=== PATIENT | male | born 1975 | race Two or more races ===

== ENCOUNTER 2021-03-08 11:02 | Inpatient (IN) | payer OTHER ==
[~2021-03-08] VITALS: Ht 182.9 cm; Wt 72.0 kg
[2021-03-08] MEDS ORDERED: SODIUM CHLORIDE 0.9% 1,000 ML IV ONE ×2 (11:15)
[2021-03-08] MEDS ORDERED: KETOROLAC TROMETH 30 MG/ML 1ML VIAL IV ONE (11:15)
[2021-03-08] MEDS ORDERED: cefTRIAXone 1GM/50ML D5W 50 ML IV ONE (12:15)
[2021-03-08] MEDS ORDERED: metroNIDAZOLE 500MG/100ML 100 ML IV ONE (12:15)
[2021-03-08] MEDS ORDERED: MORPHINE SULFATE 4 MG/ML SYR/VIAL IV ONE (13:00)
[2021-03-08] MEDS ORDERED: ONDANSETRON HCL 4 MG/2 ML VIAL IV ONE (13:00)
[2021-03-08 13:40] LABS: Basophils # (auto) 0.1 10 ^3/uL (0-0.2); Basophils % (auto) 0.3 % (0.0-2.0); Eosinophils # (auto) 0.1 10 ^3/uL (0-0.8); Eosinophils % (auto) 0.6 % (0.0-7.0); Hematocrit 33.8 % (41.0-53.0); Hemoglobin 11.1 g/dL (13.5-17.5); Lymphocytes # (auto) 1.2 10 ^3/uL (0.4-5.4); Lymphocytes % (auto) 6.9 % (10.0-50.0); Mean Corpuscular Hemoglobin 27.2 pg (28.0-32.0); Mean Corpuscular Hgb Conc. 32.9 g/dL (32.0-36.0); Mean Corpuscular Volume 82.8 fL (80.0-100.0); Monocytes % (auto) 11.7 % (0.0-12.0); Neutrophils % (auto) 80.5 % (37.0-80.0); Red Blood Cells 4.08 10^6/uL (4.5-5.90); Red Cell Distribution Width 13.3 % (11.8-14.3); White Blood Cell 17.4 10^3/uL (4.4-10.8)
[2021-03-08 13:59] LABS: Chloride 102 mmol/L (98-107); Potassium 3.7 mmol/L (3.5-5.1); Sodium 136 mmol/L (136-145)
[2021-03-08 14:08] LABS: Alanine Aminotransferase 47 U/L (16-61); Albumin 2.4 g/dL (3.4-5.0); Alkaline Phosphatase 120 U/L (45-117); Anion Gap 9 (5-15); Aspartate Aminotransferase 19 U/L (15-37); BUN/Creatinine Ratio 16.3; Blood Urea Nitrogen 14 mg/dL (7-18); Calcium 8.7 mg/dL (8.5-10.1); Carbon Dioxide 25 mmol/L (21-32); GFR African American 125 mL/min; GFR Non-African American 103 mL/min; Glucose 85 mg/dL (74-106); Total Protein 7.4 g/dL (6.4-8.2)
[2021-03-08] MEDS ORDERED: MORPHINE SULFATE 4 MG/ML SYR/VIAL IV PRN (15:00)
[2021-03-08] MEDS ORDERED: MORPHINE SULFATE INJECTION 2 MG/ML SYRG IV PRN (15:00)
[2021-03-08] MEDS ORDERED: NITROGLYCERIN 0.4 MG SL TAB SL PRN (15:00)
[2021-03-08] MEDS: D5W/SOD CHL 0.45%/KCL 20MEQ 1,000 ML IV SCH (15:16)
[2021-03-08 16:45] LABS: INR 1.17 (0.9-1.15); Partial Thromboplastin Time 29.7 sec (23.0-31.2)
[2021-03-08] MEDS: ONDANSETRON HCL 4 MG/2 ML VIAL IV PRN (17:40)
[2021-03-08 18:13] LABS: Urine Bacteria NONE SEEN /hpf (None Seen); Urine Blood TRACE /uL (Negative); Urine Hyaline Cast FEW /lpf (0 - 2); Urine Mucus FEW (None Seen); Urine Specific Gravity 1.023 (1.001-1.035); Urine WBC 3 /hpf (0 - 3)
[2021-03-08] MEDS: MORPHINE SULFATE 4 MG/ML SYR/VIAL IV PRN (20:53)
[2021-03-08] MEDS: MEROPENEM 1GM IVPB 100 ML IV SCH (22:21)
[2021-03-09] MEDS: ONDANSETRON HCL 4 MG/2 ML VIAL IV PRN (00:42)
[2021-03-09] MEDS: MORPHINE SULFATE INJECTION 2 MG/ML SYRG IV PRN ×3 (00:42→20:00)
[2021-03-09] MEDS: D5W/SOD CHL 0.45%/KCL 20MEQ 1,000 ML IV SCH ×4 (01:56→17:25)
[2021-03-09] MEDS: MORPHINE SULFATE 4 MG/ML SYR/VIAL IV PRN ×4 (05:41→17:25)
[2021-03-09 06:07] LABS: Basophils # (auto) 0 10 ^3/uL (0-0.2); Basophils % (auto) 0.2 % (0.0-2.0); Eosinophils # (auto) 0.1 10 ^3/uL (0-0.8); Eosinophils % (auto) 0.5 % (0.0-7.0); Hematocrit 32.2 % (41.0-53.0); Hemoglobin 10.9 g/dL (13.5-17.5); Lymphocytes # (auto) 1.3 10 ^3/uL (0.4-5.4); Lymphocytes % (auto) 8.4 % (10.0-50.0); Mean Corpuscular Hemoglobin 27.9 pg (28.0-32.0); Mean Corpuscular Hgb Conc. 33.8 g/dL (32.0-36.0); Mean Corpuscular Volume 82.5 fL (80.0-100.0); Monocytes # (auto) 1.6 10 ^3/uL (0-1.3); Monocytes % (auto) 10.4 % (0.0-12.0); Neutrophils # (auto) 12.1 10 ^3/uL (1.6-8.6); Neutrophils % (auto) 80.5 % (37.0-80.0); Red Cell Distribution Width 13.3 % (11.8-14.3)
[2021-03-09 06:23] LABS: Calcium 8.3 mg/dL (8.5-10.1)
[2021-03-09 06:29] LABS: Albumin 2.6 g/dL (3.4-5.0); BUN/Creatinine Ratio 13.1; Bilirubin, Total 1.2 mg/dL (0.2-1.0); Total Protein 6.9 g/dL (6.4-8.2)
[2021-03-09] MEDS: MEROPENEM 1GM IVPB 100 ML IV SCH ×3 (06:33→22:00)
[2021-03-09] MEDS: ACETAMINOPHEN 325 MG TAB PO PRN ×2 (06:48→16:11)
[2021-03-09] MEDS: PANTOPRAZOLE 40 MG/10 ML VIAL INJ IV SCH (08:45)
[2021-03-09 08:50] VITALS: BP 133/84
[2021-03-09] MEDS: ENOXAPARIN SOD 40 MG/0.4 ML SYRINGE SC SCH (09:43)
[2021-03-09] MEDS ORDERED: levoFLOXacin 500MG 100 ML IV SCH (10:00)
[2021-03-09 12:33] VITALS: BP 134/79
[2021-03-09] MEDS ORDERED: IOHEXOL 300 MG/ML 100ML BOTTLE IJ ONE (14:12)
[2021-03-09] MEDS ORDERED: OMNIPAQUE ORAL SOLN 500ml 12mg/ml PO ONE (14:13)
[2021-03-09 17:13] VITALS: BP 121/68
[2021-03-09 20:00] VITALS: BP 130/77
[2021-03-09 21:38] VITALS: BP 130/77
[2021-03-10] VITALS (7 sets, daily range): BP systolic 106–135; BP diastolic 68–87
[2021-03-10] MEDS: MORPHINE SULFATE 4 MG/ML SYR/VIAL IV PRN ×3 (00:19→10:54)
[2021-03-10] MEDS: D5W/SOD CHL 0.45%/KCL 20MEQ 1,000 ML IV SCH ×3 (00:20→13:14)
[2021-03-10] MEDS: MORPHINE SULFATE INJECTION 2 MG/ML SYRG IV PRN (05:40)
[2021-03-10] MEDS: MEROPENEM 1GM IVPB 100 ML IV SCH ×3 (06:02→23:05)
[2021-03-10 07:24] LABS: Basophils # (auto) 0 10 ^3/uL (0-0.2); Basophils % (auto) 0.2 % (0.0-2.0); Eosinophils # (auto) 0.2 10 ^3/uL (0-0.8); Hematocrit 36.2 % (41.0-53.0); Hemoglobin 11.8 g/dL (13.5-17.5); Lymphocytes # (auto) 1.2 10 ^3/uL (0.4-5.4); Lymphocytes % (auto) 10.4 % (10.0-50.0); Mean Corpuscular Hemoglobin 28.2 pg (28.0-32.0); Mean Corpuscular Hgb Conc. 32.6 g/dL (32.0-36.0); Mean Corpuscular Volume 86.5 fL (80.0-100.0); Monocytes # (auto) 1.3 10 ^3/uL (0-1.3); Monocytes % (auto) 10.7 % (0.0-12.0); Neutrophils # (auto) 9.1 10 ^3/uL (1.6-8.6); Neutrophils % (auto) 76.7 % (37.0-80.0); Red Blood Cells 4.18 10^6/uL (4.5-5.90); Red Cell Distribution Width 13.8 % (11.8-14.3); White Blood Cell 11.8 10^3/uL (4.4-10.8)
[2021-03-10 07:38] LABS: Potassium 3.8 mmol/L (3.5-5.1)
[2021-03-10] MEDS: HYDROmorphone HCL 2 MG/ML VL IV PRN ×4 (07:45→22:00)
[2021-03-10 07:50] LABS: Albumin 2.5 g/dL (3.4-5.0); BUN/Creatinine Ratio 8.1; Bilirubin, Total 0.9 mg/dL (0.2-1.0); Calcium 8.4 mg/dL (8.5-10.1)
[2021-03-10] MEDS: PANTOPRAZOLE 40 MG/10 ML VIAL INJ IV SCH (08:21)
[2021-03-10] MEDS ORDERED: HYDROmorphone HCL 2 MG/ML VL IV PRN ×2 (12:30→12:45)
[2021-03-10] MEDS: ENOXAPARIN SOD 40 MG/0.4 ML SYRINGE SC SCH (12:54)
[2021-03-11] MEDS: HYDROmorphone HCL 2 MG/ML VL IV PRN ×11 (01:14→23:18)
[2021-03-11] MEDS: D5W/SOD CHL 0.45%/KCL 20MEQ 1,000 ML IV SCH ×2 (02:35→18:44)
[2021-03-11 05:00] VITALS: BP 123/74
[2021-03-11 06:05] LABS: Basophils # (auto) 0.1 10 ^3/uL (0-0.2); Basophils % (auto) 0.8 % (0.0-2.0); Eosinophils # (auto) 0.2 10 ^3/uL (0-0.8); Eosinophils % (auto) 3.6 % (0.0-7.0); Hematocrit 35.4 % (41.0-53.0); Hemoglobin 11.8 g/dL (13.5-17.5); Lymphocytes # (auto) 1.2 10 ^3/uL (0.4-5.4); Lymphocytes % (auto) 16.8 % (10.0-50.0); Mean Corpuscular Hemoglobin 27.6 pg (28.0-32.0); Mean Corpuscular Hgb Conc. 33.3 g/dL (32.0-36.0); Monocytes # (auto) 0.9 10 ^3/uL (0-1.3); Monocytes % (auto) 13.1 % (0.0-12.0); Neutrophils # (auto) 4.6 10 ^3/uL (1.6-8.6); Neutrophils % (auto) 65.7 % (37.0-80.0); Nucleated Red Blood Cells % 0.3 %; Red Blood Cells 4.26 10^6/uL (4.5-5.90); Red Cell Distribution Width 13.4 % (11.8-14.3)
[2021-03-11] MEDS: MEROPENEM 1GM IVPB 100 ML IV SCH ×3 (06:24→23:03)
[2021-03-11 06:33] LABS: Albumin 2.6 g/dL (3.4-5.0); Calcium 8.6 mg/dL (8.5-10.1); Potassium 3.9 mmol/L (3.5-5.1)
[2021-03-11 06:37] LABS: Bilirubin, Total 0.4 mg/dL (0.2-1.0); Total Protein 7.2 g/dL (6.4-8.2)
[2021-03-11 08:47] VITALS: BP 130/74
[2021-03-11] MEDS: PANTOPRAZOLE 40 MG/10 ML VIAL INJ IV SCH (08:50)
[2021-03-11] MEDS: ENOXAPARIN SOD 40 MG/0.4 ML SYRINGE SC SCH (08:51)
[2021-03-11 12:32] VITALS: BP 127/79
[2021-03-11 16:25] VITALS: BP 129/87
[2021-03-11] MEDS ORDERED: MILK OF MAGNESIA 30ML SUSP PO PRN (18:00)
[2021-03-11 22:00] VITALS: BP 115/75
[2021-03-11] MEDS: DOCUSATE SOD 100 MG CAP PO SCH (23:03)
[2021-03-11] MEDS: SENNA 8.6 MG TAB PO SCH (23:03)
[2021-03-12] MEDS: HYDROmorphone HCL 2 MG/ML VL IV PRN ×11 (01:12→22:23)
[2021-03-12 05:00] VITALS: BP 109/56
[2021-03-12] MEDS: DOCUSATE SOD 100 MG CAP PO SCH ×3 (05:14→22:00)
[2021-03-12] MEDS: D5W/SOD CHL 0.45%/KCL 20MEQ 1,000 ML IV SCH ×2 (05:16→18:12)
[2021-03-12] MEDS: MEROPENEM 1GM IVPB 100 ML IV SCH ×3 (06:48→22:29)
[2021-03-12 08:48] VITALS: BP 140/83
[2021-03-12] MEDS: MAGNESIUM CITRATE SOLUTION 300 ML BTL PO ONE ×2 (09:24→09:40)
[2021-03-12] MEDS: PANTOPRAZOLE 40 MG/10 ML VIAL INJ IV SCH (09:24)
[2021-03-12] MEDS: ENOXAPARIN SOD 40 MG/0.4 ML SYRINGE SC SCH (09:25)
[2021-03-12 12:41] VITALS: BP 141/71
[2021-03-12 16:37] VITALS: BP 130/75
[2021-03-12 21:42] VITALS: BP 123/72
[2021-03-12] MEDS: SENNA 8.6 MG TAB PO SCH (22:00)
[2021-03-13] MEDS: HYDROmorphone HCL 2 MG/ML VL IV PRN ×10 (00:25→23:41)
[2021-03-13] MEDS: ONDANSETRON HCL 4 MG/2 ML VIAL IV PRN ×2 (04:15→09:07)
[2021-03-13 04:43] VITALS: BP 134/69
[2021-03-13] MEDS: DOCUSATE SOD 100 MG CAP PO SCH ×2 (06:00→14:50)
[2021-03-13] MEDS: MEROPENEM 1GM IVPB 100 ML IV SCH ×3 (06:36→21:31)
[2021-03-13] MEDS: D5W/SOD CHL 0.45%/KCL 20MEQ 1,000 ML IV SCH ×2 (07:55→13:19)
[2021-03-13] MEDS: PANTOPRAZOLE 40 MG/10 ML VIAL INJ IV SCH (08:51)
[2021-03-13] MEDS: ENOXAPARIN SOD 40 MG/0.4 ML SYRINGE SC SCH (08:51)
[2021-03-13 09:00] VITALS: BP 133/67
[2021-03-13] MEDS ORDERED: HYDROcodone-ACET 10/325MG TAB PO PRN ×2 (09:15→12:45)
[2021-03-13] MEDS ORDERED: ACETAMINOPHEN 325 MG TAB PO PRN (09:30)
[2021-03-13 11:23] LABS: Hematocrit 37.6 % (41.0-53.0); Hemoglobin 12.7 g/dL (13.5-17.5); Mean Corpuscular Hemoglobin 27.6 pg (28.0-32.0); Mean Corpuscular Hgb Conc. 33.7 g/dL (32.0-36.0); Mean Corpuscular Volume 81.8 fL (80.0-100.0); Red Cell Distribution Width 13.7 % (11.8-14.3); White Blood Cell 25.2 10^3/uL (4.4-10.8)
[2021-03-13 11:40] LABS: Basophils % (manual) 0 (0.0-2.0); Blast Cells 0; Eosinophils % (manual) 0 (0-7); Metamyelocytes % 0; Myelocytes % 0; Promyelocytes % 0; Reactive Lymphocytes 0
[2021-03-13 11:44] LABS: Albumin 3.3 g/dL (3.4-5.0); Calcium 9.2 mg/dL (8.5-10.1); Magnesium 1.6 mg/dL (1.6-2.6); Potassium 3.8 mmol/L (3.5-5.1)
[2021-03-13] MEDS ORDERED: TPN PER PHARMACY 0 ML IV SCH (11:45)
[2021-03-13 11:47] LABS: BUN/Creatinine Ratio 5.7; Total Protein 8.5 g/dL (6.4-8.2)
[2021-03-13 12:55] LABS: Band Neutrophils % (manual) 23; Lymphocytes % (manual) 4 (10.0-50.0); Monocytes % (manual) 3 (0-12)
[2021-03-13 13:00] VITALS: BP 101/49
[2021-03-13] MEDS ORDERED: SODIUM PHOSP 20MEQ(15MMOL) IN NS 100 ML IV ONE (14:00)
[2021-03-13 17:00] VITALS: BP 94/47
[2021-03-13] MEDS ORDERED: fentaNYL CITRATE 100 MCG/2 ML VL ONE ×2 (18:37→20:07)
[2021-03-13] MEDS: LIDOCAINE 1% HCL (LOCAL ANESTH.) INJ 20ML MDV ONE ×2 (18:38→20:20)
[2021-03-13] MEDS: BUPIVACAINE 0.25% INJ 50ML VIAL ONE ×2 (18:38→20:20)
[2021-03-13] MEDS ORDERED: LIDOCAINE 2% (LOCAL ANESTH.) PF 5ml SDV ONE (18:42)
[2021-03-13] MEDS ORDERED: DexAMETHasone SOD PHOS 10MG/1ML VIAL INJ ONE (18:42)
[2021-03-13] MEDS ORDERED: KETOROLAC TROMETH 60MG/2ML VIAL ONE (18:42)
[2021-03-13] MEDS ORDERED: PROPOFOL 10 MG/ML 20 ML IV ONE (18:42)
[2021-03-13] MEDS ORDERED: ONDANSETRON HCL 4 MG/2 ML VIAL ONE (18:42)
[2021-03-13] MEDS ORDERED: MIDAZOLAM HCL 2MG/2ML 2ml VIAL (1mg/ml) ONE (18:43)
[2021-03-13] MEDS ORDERED: MIDAZOLAM HCL 2MG/2ML 2ml VIAL (1mg/ml) IV ONE (18:45)
[2021-03-13] MEDS ORDERED: NEOSTIGMINE 1 MG/ML INJ (10mg/10ML VIAL) IV ONE (18:45)
[2021-03-13] MEDS ORDERED: ROCURONIUM 10MG/ML 10ML VIAL IV ONE (18:45)
[2021-03-13] MEDS ORDERED: GLYCOPYRROLATE 0.2 MG/ML 1ML VIAL IV ONE (18:45)
[2021-03-13] MEDS ORDERED: LIDOCAINE HCL 2% TOP JELLY 5ML TOP ONE (19:19)
[2021-03-13] MEDS ORDERED: PPN PER PHARMACY IV NR ×10 (20:00)
[2021-03-13 22:25] VITALS: BP 115/70
[2021-03-13] MEDS: InsuLIN REG 1unit/0.01ml Soln (100units/ml) SC SCH (23:51)
[2021-03-13] MEDS: ACCU-CHEK COMFORT CURVE STRIP VI SCH (23:55)
[2021-03-14] MEDS ORDERED: DEXTROSE (50%) 50ML SYRG IV SCH
[2021-03-14] MEDS: HYDROmorphone HCL 2 MG/ML VL IV PRN ×8 (01:26→22:40)
[2021-03-14 05:10] VITALS: BP 128/72
[2021-03-14] MEDS: MEROPENEM 1GM IVPB 100 ML IV SCH ×3 (05:32→20:54)
[2021-03-14] MEDS: InsuLIN REG 1unit/0.01ml Soln (100units/ml) SC SCH ×3 (05:45→18:00)
[2021-03-14] MEDS: ACCU-CHEK COMFORT CURVE STRIP VI SCH ×3 (05:48→18:14)
[2021-03-14 07:45] LABS: Albumin 2.5 g/dL (3.4-5.0); Potassium 4.6 mmol/L (3.5-5.1)
[2021-03-14] MEDS: ENOXAPARIN SOD 40 MG/0.4 ML SYRINGE SC SCH (07:50)
[2021-03-14] MEDS: PANTOPRAZOLE 40 MG/10 ML VIAL INJ IV SCH (07:50)
[2021-03-14] MEDS: D5W/SOD CHL 0.45%/KCL 20MEQ 1,000 ML IV SCH ×2 (07:51→10:39)
[2021-03-14 07:52] LABS: Bilirubin, Total 0.6 mg/dL (0.2-1.0); Calcium 8.6 mg/dL (8.5-10.1); Magnesium 2.3 mg/dL (1.6-2.6); Pre Albumin 9.6 mg/dL (20.0-40.0); Total Protein 7.1 g/dL (6.4-8.2)
[2021-03-14 07:54] VITALS: BP 125/78
[2021-03-14] MEDS ORDERED: CLINIMIX PER PHARMACY 0 ML IV SCH (10:15)
[2021-03-14] MEDS ORDERED: KETOROLAC TROMETH 30 MG/ML 1ML VIAL IV PRN (10:18)
[2021-03-14 12:00] VITALS: BP 126/78
[2021-03-14] MEDS ORDERED: KETOROLAC TROMETH 30 MG/ML 1ML VIAL IV ONE (12:00)
[2021-03-14] MEDS ORDERED: REMDESIVIR PER PHARMACY 0 ML IV SCH (14:15)
[2021-03-14] MEDS ORDERED: REMDESIVIR 200 MG in NS 210ml LOADING DOSE ADULT IV ONE (15:00)
[2021-03-14 17:00] VITALS: BP 137/71
[2021-03-14] MEDS ORDERED: AMINO ACID INFUSION IN D10W 2,000 ML IV NR (20:00)
[2021-03-14 21:34] VITALS: BP 131/67
[2021-03-15] VITALS (7 sets, daily range): BP systolic 108–141; BP diastolic 74–94
[2021-03-15] MEDS: ACCU-CHEK COMFORT CURVE STRIP VI SCH ×4 (00:34→18:11)
[2021-03-15] MEDS: InsuLIN REG 1unit/0.01ml Soln (100units/ml) SC SCH ×4 (00:35→18:00)
[2021-03-15] MEDS: HYDROmorphone HCL 2 MG/ML VL IV PRN ×9 (00:40→22:39)
[2021-03-15] MEDS: MEROPENEM 1GM IVPB 100 ML IV SCH ×3 (05:44→21:54)
[2021-03-15 05:59] LABS: Hematocrit 36.2 % (41.0-53.0); Hemoglobin 11.8 g/dL (13.5-17.5); Mean Corpuscular Hemoglobin 26.6 pg (28.0-32.0); Mean Corpuscular Hgb Conc. 32.5 g/dL (32.0-36.0); Mean Corpuscular Volume 81.9 fL (80.0-100.0); Red Blood Cells 4.42 10^6/uL (4.5-5.90); Red Cell Distribution Width 13.9 % (11.8-14.3); White Blood Cell 29.8 10^3/uL (4.4-10.8)
[2021-03-15 06:00] LABS: Basophils % (manual) 0 (0.0-2.0); Blast Cells 0; Eosinophils % (manual) 0 (0-7); Metamyelocytes % 0; Myelocytes % 0; Promyelocytes % 0; Reactive Lymphocytes 0
[2021-03-15 06:26] LABS: Potassium 4.2 mmol/L (3.5-5.1)
[2021-03-15 06:38] LABS: Albumin 2.5 g/dL (3.4-5.0); Bilirubin, Total 0.6 mg/dL (0.2-1.0); Calcium 8.4 mg/dL (8.5-10.1); Magnesium 2.4 mg/dL (1.6-2.6); Phosphorus 1.5 mg/dL (2.5-4.90); Total Protein 7.3 g/dL (6.4-8.2)
[2021-03-15] MEDS: ONDANSETRON HCL 4 MG/2 ML VIAL IV PRN (06:50)
[2021-03-15 07:06] LABS: Band Neutrophils % (manual) 5; Lymphocytes % (manual) 2 (10.0-50.0); Monocytes % (manual) 7 (0-12)
[2021-03-15] MEDS: ENOXAPARIN SOD 40 MG/0.4 ML SYRINGE SC SCH (08:56)
[2021-03-15] MEDS: PANTOPRAZOLE 40 MG/10 ML VIAL INJ IV SCH (08:56)
[2021-03-15] MEDS: KETOROLAC TROMETH 30 MG/ML 1ML VIAL IV PRN ×2 (08:57→15:55)
[2021-03-15] MEDS: D5W/SOD CHL 0.45%/KCL 20MEQ 1,000 ML IV SCH (10:15)
[2021-03-15] MEDS ORDERED: AMINO ACID INFUSION IN D10W 2,000 ML IV NR ×2 (14:45→20:00)
[2021-03-15] MEDS: REMDESIVIR 100mg 100 MG in SODIUM CHL 0.9% 230 ML IV SCH (15:00)
[2021-03-15 18:46] LABS: Hepatitis A Ab IgM Negative; Hepatitis B Core IgM Negative
[2021-03-15 18:47] LABS: Hepatitis B Surface Antigen Negative (Negative); Hepatitis C Antibody Negative (Negative)
[2021-03-16] MEDS: HYDROmorphone HCL 2 MG/ML VL IV PRN ×10 (00:31→23:03)
[2021-03-16] MEDS: ACCU-CHEK COMFORT CURVE STRIP VI SCH ×5 (00:43→23:12)
[2021-03-16] MEDS: ONDANSETRON HCL 4 MG/2 ML VIAL IV PRN (02:40)
[2021-03-16 05:34] VITALS: BP 137/77
[2021-03-16 05:57] LABS: Basophils # (auto) 0.1 10 ^3/uL (0-0.2); Basophils % (auto) 0.4 % (0.0-2.0); Eosinophils # (auto) 0.1 10 ^3/uL (0-0.8); Eosinophils % (auto) 0.5 % (0.0-7.0); Hematocrit 36.3 % (41.0-53.0); Hemoglobin 11.9 g/dL (13.5-17.5); Lymphocytes # (auto) 1.9 10 ^3/uL (0.4-5.4); Mean Corpuscular Hgb Conc. 32.7 g/dL (32.0-36.0); Mean Corpuscular Volume 82.5 fL (80.0-100.0); Monocytes # (auto) 1.2 10 ^3/uL (0-1.3); Monocytes % (auto) 6.6 % (0.0-12.0); Neutrophils # (auto) 15.4 10 ^3/uL (1.6-8.6); Neutrophils % (auto) 82.5 % (37.0-80.0); Red Cell Distribution Width 13.9 % (11.8-14.3); White Blood Cell 18.6 10^3/uL (4.4-10.8)
[2021-03-16] MEDS: InsuLIN REG 1unit/0.01ml Soln (100units/ml) SC SCH ×5 (06:00→23:12)
[2021-03-16 06:30] LABS: Calcium 8.5 mg/dL (8.5-10.1); Magnesium 2.6 mg/dL (1.6-2.6); Potassium 3.7 mmol/L (3.5-5.1)
[2021-03-16 06:36] LABS: Albumin 2.5 g/dL (3.4-5.0); BUN/Creatinine Ratio 30.6; Bilirubin, Total 0.9 mg/dL (0.2-1.0); Phosphorus 2.2 mg/dL (2.5-4.90); Total Protein 7.4 g/dL (6.4-8.2)
[2021-03-16] MEDS: MEROPENEM 1GM IVPB 100 ML IV SCH ×4 (06:41→21:20)
[2021-03-16 09:00] VITALS: BP 127/90
[2021-03-16] MEDS ORDERED: SODIUM PHOSPH 24MEQ(18MMOL) IN NS 100 ML IV ONE (09:45)
[2021-03-16] MEDS: D5W/SOD CHL 0.45%/KCL 20MEQ 1,000 ML IV SCH (10:15)
[2021-03-16] MEDS: PANTOPRAZOLE 40 MG/10 ML VIAL INJ IV SCH (10:41)
[2021-03-16] MEDS: ENOXAPARIN SOD 40 MG/0.4 ML SYRINGE SC SCH (10:41)
[2021-03-16 13:00] VITALS: BP 130/79
[2021-03-16] MEDS: REMDESIVIR 100mg 100 MG in SODIUM CHL 0.9% 230 ML IV SCH (14:51)
[2021-03-16 17:00] VITALS: BP 126/76
[2021-03-16] MEDS ORDERED: AMINO ACID INFUSION IN D10W 2,000 ML IV NR (20:00)
[2021-03-16 22:00] VITALS: BP 125/81
[2021-03-17] MEDS: HYDROmorphone HCL 2 MG/ML VL IV PRN ×9 (01:34→23:18)
[2021-03-17 04:33] VITALS: BP 135/76
[2021-03-17 05:41] LABS: Basophils # (auto) 0.1 10 ^3/uL (0-0.2); Basophils % (auto) 0.5 % (0.0-2.0); Eosinophils # (auto) 0.1 10 ^3/uL (0-0.8); Eosinophils % (auto) 0.6 % (0.0-7.0); Hematocrit 37.1 % (41.0-53.0); Hemoglobin 12.3 g/dL (13.5-17.5); Lymphocytes # (auto) 1.4 10 ^3/uL (0.4-5.4); Lymphocytes % (auto) 7.8 % (10.0-50.0); Mean Corpuscular Hemoglobin 26.9 pg (28.0-32.0); Mean Corpuscular Hgb Conc. 33.1 g/dL (32.0-36.0); Mean Corpuscular Volume 81.2 fL (80.0-100.0); Monocytes # (auto) 1.2 10 ^3/uL (0-1.3); Monocytes % (auto) 6.7 % (0.0-12.0); Neutrophils # (auto) 15.5 10 ^3/uL (1.6-8.6); Neutrophils % (auto) 84.4 % (37.0-80.0); Red Blood Cells 4.57 10^6/uL (4.5-5.90); Red Cell Distribution Width 13.8 % (11.8-14.3); White Blood Cell 18.4 10^3/uL (4.4-10.8)
[2021-03-17] MEDS: MEROPENEM 1GM IVPB 100 ML IV SCH ×3 (05:55→22:30)
[2021-03-17] MEDS: InsuLIN REG 1unit/0.01ml Soln (100units/ml) SC SCH ×4 (06:00→23:17)
[2021-03-17] MEDS: ACCU-CHEK COMFORT CURVE STRIP VI SCH ×4 (06:04→23:17)
[2021-03-17 06:20] LABS: Potassium 3.6 mmol/L (3.5-5.1)
[2021-03-17 06:30] LABS: Albumin 2.6 g/dL (3.4-5.0); BUN/Creatinine Ratio 32.1; Bilirubin, Total 1.3 mg/dL (0.2-1.0); Calcium 8.4 mg/dL (8.5-10.1); Magnesium 2.5 mg/dL (1.6-2.6); Phosphorus 2.8 mg/dL (2.5-4.90); Total Protein 7.3 g/dL (6.4-8.2)
[2021-03-17 08:30] VITALS: BP 115/76
[2021-03-17] MEDS: ENOXAPARIN SOD 40 MG/0.4 ML SYRINGE SC SCH (10:08)
[2021-03-17] MEDS: PANTOPRAZOLE 40 MG/10 ML VIAL INJ IV SCH ×2 (10:08→22:30)
[2021-03-17] MEDS: D5W/SOD CHL 0.45%/KCL 20MEQ 1,000 ML IV SCH (10:15)
[2021-03-17 12:30] VITALS: BP 124/71
[2021-03-17] MEDS: REMDESIVIR 100mg 100 MG in SODIUM CHL 0.9% 230 ML IV SCH (16:13)
[2021-03-17 17:00] VITALS: BP 118/65
[2021-03-17] MEDS ORDERED: AMINO ACID INFUSION IN D10W 2,000 ML IV NR (20:00)
[2021-03-17 22:00] VITALS: BP 119/77
[2021-03-18] MEDS: HYDROmorphone HCL 2 MG/ML VL IV PRN ×9 (03:49→23:11)
[2021-03-18 05:00] VITALS: BP 124/77
[2021-03-18] MEDS: InsuLIN REG 1unit/0.01ml Soln (100units/ml) SC SCH ×3 (06:00→17:37)
[2021-03-18] MEDS: ACCU-CHEK COMFORT CURVE STRIP VI SCH ×3 (06:03→17:37)
[2021-03-18] MEDS: MEROPENEM 1GM IVPB 100 ML IV SCH ×3 (06:03→21:15)
[2021-03-18 08:55] LABS: Red Cell Distribution Width 14.4 % (11.8-14.3); White Blood Cell 25.6 10^3/uL (4.4-10.8)
[2021-03-18 08:56] LABS: Potassium 3.7 mmol/L (3.5-5.1)
[2021-03-18 08:57] LABS: Hematocrit 36.2 % (41.0-53.0); Mean Corpuscular Hemoglobin 27.2 pg (28.0-32.0); Mean Corpuscular Hgb Conc. 33.2 g/dL (32.0-36.0); Mean Corpuscular Volume 81.9 fL (80.0-100.0); Red Blood Cells 4.43 10^6/uL (4.5-5.90)
[2021-03-18 09:00] VITALS: BP 115/70
[2021-03-18 09:00] LABS: Basophils % (manual) 0 (0.0-2.0); Blast Cells 0; Promyelocytes % 0; Reactive Lymphocytes 0
[2021-03-18 09:03] LABS: Albumin 2.6 g/dL (3.4-5.0); BUN/Creatinine Ratio 31.6; Bilirubin, Total 1.5 mg/dL (0.2-1.0); Calcium 8.6 mg/dL (8.5-10.1); Magnesium 2.4 mg/dL (1.6-2.6); Phosphorus 2.6 mg/dL (2.5-4.90); Total Protein 7.7 g/dL (6.4-8.2)
[2021-03-18 09:28] LABS: Band Neutrophils % (manual) 7; Eosinophils % (manual) 1 (0-7); Lymphocytes % (manual) 6 (10.0-50.0); Metamyelocytes % 1; Monocytes % (manual) 6 (0-12); Myelocytes % 1
[2021-03-18] MEDS: ENOXAPARIN SOD 40 MG/0.4 ML SYRINGE SC SCH (10:16)
[2021-03-18] MEDS: PANTOPRAZOLE 40 MG/10 ML VIAL INJ IV SCH ×2 (10:16→21:15)
[2021-03-18] MEDS: D5W/SOD CHL 0.45%/KCL 20MEQ 1,000 ML IV SCH (10:18)
[2021-03-18 13:00] VITALS: BP 114/76
[2021-03-18] MEDS: REMDESIVIR 100mg 100 MG in SODIUM CHL 0.9% 230 ML IV SCH (15:45)
[2021-03-18 17:00] VITALS: BP 122/69
[2021-03-18] MEDS ORDERED: AMINO ACID INFUSION IN D10W 2,000 ML IV NR (20:00)
[2021-03-18 22:00] VITALS: BP 107/77
[2021-03-19] MEDS: ACCU-CHEK COMFORT CURVE STRIP VI SCH ×4 (00:30→17:57)
[2021-03-19] MEDS: HYDROmorphone HCL 2 MG/ML VL IV PRN ×7 (02:03→23:31)
[2021-03-19 05:21] VITALS: BP 113/66
[2021-03-19] MEDS: InsuLIN REG 1unit/0.01ml Soln (100units/ml) SC SCH ×4 (06:00→17:59)
[2021-03-19] MEDS: MEROPENEM 1GM IVPB 100 ML IV SCH ×3 (06:18→20:58)
[2021-03-19 07:03] LABS: Albumin 2.5 g/dL (3.4-5.0); Calcium 8.3 mg/dL (8.5-10.1); Magnesium 2.4 mg/dL (1.6-2.6); Potassium 3.6 mmol/L (3.5-5.1)
[2021-03-19 07:07] LABS: BUN/Creatinine Ratio 31.6; Phosphorus 2.9 mg/dL (2.5-4.90); Total Protein 7.2 g/dL (6.4-8.2)
[2021-03-19 08:43] VITALS: BP 122/73
[2021-03-19] MEDS: PANTOPRAZOLE 40 MG/10 ML VIAL INJ IV SCH ×2 (09:15→20:58)
[2021-03-19] MEDS: ENOXAPARIN SOD 40 MG/0.4 ML SYRINGE SC SCH (09:15)
[2021-03-19 12:58] VITALS: BP 103/68
[2021-03-19 16:48] VITALS: BP 123/78
[2021-03-19] MEDS ORDERED: OXYCODONE W/ ACETAMINOPHEN 5/325MG TABLET PO PRN (19:15)
[2021-03-19] MEDS ORDERED: AMINO ACID INFUSION IN D10W 2,000 ML IV NR (20:00)
[2021-03-19] MEDS: OXYCODONE W/ ACETAMINOPHEN 5/325MG TABLET PO PRN (20:57)
[2021-03-19 22:00] VITALS: BP 116/79
[2021-03-20] MEDS: OXYCODONE W/ ACETAMINOPHEN 5/325MG TABLET PO PRN ×5 (01:38→21:01)
[2021-03-20] MEDS: HYDROmorphone HCL 2 MG/ML VL IV PRN ×7 (02:36→22:00)
[2021-03-20 05:00] VITALS: BP 119/75
[2021-03-20] MEDS: MEROPENEM 1GM IVPB 100 ML IV SCH ×3 (06:28→21:56)
[2021-03-20] MEDS: ENOXAPARIN SOD 40 MG/0.4 ML SYRINGE SC SCH (07:58)
[2021-03-20] MEDS: PANTOPRAZOLE 40 MG/10 ML VIAL INJ IV SCH ×2 (07:58→21:56)
[2021-03-20 09:00] VITALS: BP 118/87
[2021-03-20 13:00] VITALS: BP 110/73
[2021-03-20 17:00] VITALS: BP 124/67
[2021-03-20 22:00] VITALS: BP 117/76
[2021-03-21] MEDS: HYDROmorphone HCL 2 MG/ML VL IV PRN ×8 (00:29→18:39)
[2021-03-21 05:00] VITALS: BP 109/79
[2021-03-21] MEDS: MEROPENEM 1GM IVPB 100 ML IV SCH ×2 (05:30→14:50)
[2021-03-21 08:00] VITALS: BP 111/82
[2021-03-21] MEDS: PANTOPRAZOLE 40 MG/10 ML VIAL INJ IV SCH ×2 (08:01→21:05)
[2021-03-21] MEDS: ENOXAPARIN SOD 40 MG/0.4 ML SYRINGE SC SCH (08:02)
[2021-03-21 09:00] VITALS: BP 111/82
[2021-03-21 13:00] VITALS: BP 123/81
[2021-03-21] MEDS: metroNIDAZOLE 500MG/100ML 100 ML IV SCH ×2 (13:54→21:05)
[2021-03-21] MEDS ORDERED: VANCOMYCIN HCL 125MG/5ML ORAL SOL PO SCH (14:00)
[2021-03-21] MEDS: ONDANSETRON HCL 4 MG/2 ML VIAL IV PRN ×3 (14:06→23:22)
[2021-03-21 14:29] LABS: Basophils # (auto) 0.1 10 ^3/uL (0-0.2); Eosinophils # (auto) 0 10 ^3/uL (0-0.8); Monocytes # (auto) 0.9 10 ^3/uL (0-1.3)
[2021-03-21 14:30] LABS: Basophils % (auto) 0.4 % (0.0-2.0); Eosinophils % (auto) 0.2 % (0.0-7.0); Hemoglobin 13.8 g/dL (13.5-17.5); Lymphocytes # (auto) 1.5 10 ^3/uL (0.4-5.4); Mean Corpuscular Hemoglobin 27.1 pg (28.0-32.0); Mean Corpuscular Hgb Conc. 33.6 g/dL (32.0-36.0); Mean Corpuscular Volume 80.7 fL (80.0-100.0); Monocytes % (auto) 4.5 % (0.0-12.0); Neutrophils # (auto) 18.4 10 ^3/uL (1.6-8.6); Neutrophils % (auto) 87.9 % (37.0-80.0); Red Blood Cells 5.08 10^6/uL (4.5-5.90); Red Cell Distribution Width 14.6 % (11.8-14.3); White Blood Cell 20.9 10^3/uL (4.4-10.8)
[2021-03-21 14:38] LABS: Albumin 2.8 g/dL (3.4-5.0)
[2021-03-21] MEDS: VANCOMYCIN HCL 125MG/5ML ORAL SOL PO SCH ×3 (14:40→21:07)
[2021-03-21 14:41] LABS: BUN/Creatinine Ratio 18.9; Total Protein 8.1 g/dL (6.4-8.2)
[2021-03-21] MEDS: FLORASTOR (S. BOULARDII) 250 MG CAP PO SCH ×2 (15:00→23:22)
[2021-03-21 17:00] VITALS: BP 123/75
[2021-03-21] MEDS ORDERED: HYDROmorphone HCL 2 MG TAB PO PRN (18:30)
[2021-03-21] MEDS: HYDROmorphone HCL 2 MG TAB PO PRN (21:03)
[2021-03-21 22:00] VITALS: BP 113/72
[2021-03-21] MEDS: D5W/SOD CHL 0.45%/KCL 20MEQ 1,000 ML IV SCH (23:22)
[2021-03-22] MEDS: HYDROmorphone HCL 2 MG TAB PO PRN ×2 (01:01→05:21)
[2021-03-22 05:00] VITALS: BP 119/73
[2021-03-22] MEDS: ONDANSETRON HCL 4 MG/2 ML VIAL IV PRN ×3 (05:21→14:34)
[2021-03-22] MEDS: VANCOMYCIN HCL 125MG/5ML ORAL SOL PO SCH ×4 (05:21→22:42)
[2021-03-22] MEDS: metroNIDAZOLE 500MG/100ML 100 ML IV SCH ×3 (05:21→22:41)
[2021-03-22] MEDS: FLORASTOR (S. BOULARDII) 250 MG CAP PO SCH ×3 (07:00→22:42)
[2021-03-22 08:00] VITALS: BP 120/75
[2021-03-22] MEDS: D5W/SOD CHL 0.45%/KCL 20MEQ 1,000 ML IV SCH ×2 (08:11→21:25)
[2021-03-22 08:48] VITALS: BP 120/75
[2021-03-22] MEDS: ENOXAPARIN SOD 40 MG/0.4 ML SYRINGE SC SCH (09:35)
[2021-03-22] MEDS: PANTOPRAZOLE 40 MG/10 ML VIAL INJ IV SCH ×2 (09:35→22:41)
[2021-03-22] MEDS: HYDROmorphone HCL 2 MG/ML VL IV PRN ×6 (09:53→22:43)
[2021-03-22 13:00] VITALS: BP 114/78
[2021-03-22 16:43] VITALS: BP 116/88
[2021-03-22] MEDS: chlorproMAZINE INECTION 25 MG in SODIUM CHL 0.9% 50 ML IV PRN (18:46)
[2021-03-22 22:00] VITALS: BP 110/76
[2021-03-23] MEDS: HYDROmorphone HCL 2 MG/ML VL IV PRN ×4 (00:51→22:30)
[2021-03-23] MEDS: HYDROmorphone HCL 2 MG TAB PO PRN ×4 (00:56→15:22)
[2021-03-23] MEDS: chlorproMAZINE INECTION 25 MG in SODIUM CHL 0.9% 50 ML IV PRN ×3 (02:30→21:27)
[2021-03-23 05:00] VITALS: BP 119/78
[2021-03-23] MEDS: metroNIDAZOLE 500MG/100ML 100 ML IV SCH ×3 (06:23→22:30)
[2021-03-23] MEDS: FLORASTOR (S. BOULARDII) 250 MG CAP PO SCH ×3 (06:23→23:00)
[2021-03-23] MEDS: VANCOMYCIN HCL 125MG/5ML ORAL SOL PO SCH ×4 (06:23→21:55)
[2021-03-23 08:43] VITALS: BP 115/82
[2021-03-23] MEDS: ENOXAPARIN SOD 40 MG/0.4 ML SYRINGE SC SCH (09:20)
[2021-03-23] MEDS: PANTOPRAZOLE 40 MG/10 ML VIAL INJ IV SCH ×2 (09:20→22:30)
[2021-03-23 09:36] LABS: Basophils # (auto) 0.1 10 ^3/uL (0-0.2); Basophils % (auto) 0.6 % (0.0-2.0); Eosinophils # (auto) 0.1 10 ^3/uL (0-0.8); Eosinophils % (auto) 0.4 % (0.0-7.0); Hematocrit 36.8 % (41.0-53.0); Lymphocytes # (auto) 1.9 10 ^3/uL (0.4-5.4); Lymphocytes % (auto) 9.3 % (10.0-50.0); Mean Corpuscular Hemoglobin 26.5 pg (28.0-32.0); Mean Corpuscular Hgb Conc. 32.6 g/dL (32.0-36.0); Mean Corpuscular Volume 81.3 fL (80.0-100.0); Monocytes # (auto) 1.4 10 ^3/uL (0-1.3); Monocytes % (auto) 6.7 % (0.0-12.0); Neutrophils # (auto) 16.9 10 ^3/uL (1.6-8.6); Nucleated Red Blood Cells % 0.1 %; Red Blood Cells 4.53 10^6/uL (4.5-5.90); Red Cell Distribution Width 15.1 % (11.8-14.3); White Blood Cell 20.3 10^3/uL (4.4-10.8)
[2021-03-23 09:50] LABS: Albumin 2.7 g/dL (3.4-5.0); Potassium 4.4 mmol/L (3.5-5.1)
[2021-03-23 09:53] LABS: BUN/Creatinine Ratio 22.2; Bilirubin, Total 0.6 mg/dL (0.2-1.0); Total Protein 7.1 g/dL (6.4-8.2)
[2021-03-23] MEDS: D5W/SOD CHL 0.45%/KCL 20MEQ 1,000 ML IV SCH (11:20)
[2021-03-23 13:00] VITALS: BP 132/85
[2021-03-23 17:00] VITALS: BP 123/81
[2021-03-23 22:00] VITALS: BP 129/79
[2021-03-24] MEDS: D5W/SOD CHL 0.45%/KCL 20MEQ 1,000 ML IV SCH ×2 (00:05→13:32)
[2021-03-24] MEDS: HYDROmorphone HCL 2 MG/ML VL IV PRN ×4 (00:49→08:30)
[2021-03-24 05:00] VITALS: BP 123/75
[2021-03-24] MEDS: FLORASTOR (S. BOULARDII) 250 MG CAP PO SCH (05:23)
[2021-03-24] MEDS: metroNIDAZOLE 500MG/100ML 100 ML IV SCH ×3 (05:39→22:13)
[2021-03-24] MEDS: VANCOMYCIN HCL 125MG/5ML ORAL SOL PO SCH (05:39)
[2021-03-24] MEDS: ENOXAPARIN SOD 40 MG/0.4 ML SYRINGE SC SCH (08:29)
[2021-03-24] MEDS: PANTOPRAZOLE 40 MG/10 ML VIAL INJ IV SCH ×2 (08:29→22:14)
[2021-03-24 09:00] VITALS: BP 121/79
[2021-03-24 12:54] VITALS: BP 115/84
[2021-03-24 16:47] VITALS: BP 128/81
[2021-03-24] MEDS: ONDANSETRON HCL 4 MG/2 ML VIAL IV PRN (18:06)
[2021-03-24 20:00] VITALS: BP 121/68
[2021-03-24 21:41] VITALS: BP 121/68
[2021-03-25] MEDS: D5W/SOD CHL 0.45%/KCL 20MEQ 1,000 ML IV SCH ×2 (02:04→18:31)
[2021-03-25 05:11] VITALS: BP 132/88
[2021-03-25] MEDS: metroNIDAZOLE 500MG/100ML 100 ML IV SCH ×3 (05:36→21:43)
[2021-03-25 07:00] LABS: Basophils # (auto) 0.1 10 ^3/uL (0-0.2); Eosinophils # (auto) 0.1 10 ^3/uL (0-0.8)
[2021-03-25 07:03] LABS: Basophils % (auto) 0.9 % (0.0-2.0); Eosinophils % (auto) 1.1 % (0.0-7.0); Hematocrit 36.3 % (41.0-53.0); Lymphocytes % (auto) 19.1 % (10.0-50.0); Mean Corpuscular Hemoglobin 26.8 pg (28.0-32.0); Mean Corpuscular Volume 81.4 fL (80.0-100.0); Monocytes % (auto) 9.6 % (0.0-12.0); Neutrophils # (auto) 7.2 10 ^3/uL (1.6-8.6); Neutrophils % (auto) 69.3 % (37.0-80.0); Nucleated Red Blood Cells % 0.1 %; Red Blood Cells 4.46 10^6/uL (4.5-5.90); White Blood Cell 10.5 10^3/uL (4.4-10.8)
[2021-03-25 07:20] LABS: Albumin 3.2 g/dL (3.4-5.0); BUN/Creatinine Ratio 21.1; Calcium 9.3 mg/dL (8.5-10.1)
[2021-03-25 07:23] LABS: Bilirubin, Total 0.9 mg/dL (0.2-1.0); Total Protein 8.2 g/dL (6.4-8.2)
[2021-03-25] MEDS ORDERED: BENZOCAINE (DENTAL) 20 % SPRAY 60ML MT ONE (07:45)
[2021-03-25 08:34] VITALS: BP 129/78
[2021-03-25] MEDS: PANTOPRAZOLE 40 MG/10 ML VIAL INJ IV SCH ×2 (09:50→21:43)
[2021-03-25] MEDS: ENOXAPARIN SOD 40 MG/0.4 ML SYRINGE SC SCH (09:50)
[2021-03-25 12:49] VITALS: BP 121/80
[2021-03-25 16:49] VITALS: BP 130/81
[2021-03-25 20:00] VITALS: BP 128/83
[2021-03-25 22:00] VITALS: BP 128/83
[2021-03-25] MEDS: ONDANSETRON HCL 4 MG/2 ML VIAL IV PRN (23:48)
[2021-03-25] MEDS: HYDROmorphone HCL 2 MG/ML VL IV PRN (23:48)
[2021-03-26 05:12] VITALS: BP 124/80
[2021-03-26] MEDS: metroNIDAZOLE 500MG/100ML 100 ML IV SCH ×3 (05:21→20:56)
[2021-03-26] MEDS: D5W/SOD CHL 0.45%/KCL 20MEQ 1,000 ML IV SCH ×2 (05:21→18:35)
[2021-03-26] MEDS: ONDANSETRON HCL 4 MG/2 ML VIAL IV PRN ×2 (08:08→17:57)
[2021-03-26] MEDS: HYDROmorphone HCL 2 MG/ML VL IV PRN ×4 (08:08→23:55)
[2021-03-26 08:58] VITALS: BP 121/76
[2021-03-26] MEDS: ENOXAPARIN SOD 40 MG/0.4 ML SYRINGE SC SCH (09:59)
[2021-03-26] MEDS: PANTOPRAZOLE 40 MG/10 ML VIAL INJ IV SCH ×2 (09:59→22:44)
[2021-03-26] MEDS ORDERED: GASTROGRAFIN 120 ML SOL ONE (12:30)
[2021-03-26 13:00] VITALS: BP 119/77
[2021-03-26 17:00] VITALS: BP 115/96
[2021-03-26 20:00] VITALS: BP 112/83
[2021-03-26 22:00] VITALS: BP 112/83
[2021-03-27] VITALS (7 sets, daily range): BP systolic 108–127; BP diastolic 68–83
[2021-03-27] MEDS: metroNIDAZOLE 500MG/100ML 100 ML IV SCH ×3 (05:33→22:07)
[2021-03-27] MEDS: HYDROmorphone HCL 2 MG/ML VL IV PRN ×6 (05:45→22:07)
[2021-03-27] MEDS: ENOXAPARIN SOD 40 MG/0.4 ML SYRINGE SC SCH (09:48)
[2021-03-27] MEDS: PANTOPRAZOLE 40 MG/10 ML VIAL INJ IV SCH ×2 (09:48→22:07)
[2021-03-27] MEDS: D5W/SOD CHL 0.45%/KCL 20MEQ 1,000 ML IV SCH ×2 (09:48→22:07)
[2021-03-27] MEDS: ONDANSETRON HCL 4 MG/2 ML VIAL IV PRN (18:18)
[2021-03-28] VITALS (7 sets, daily range): BP systolic 112–118; BP diastolic 70–81
[2021-03-28] MEDS: HYDROmorphone HCL 2 MG/ML VL IV PRN ×9 (02:14→22:16)
[2021-03-28] MEDS: metroNIDAZOLE 500MG/100ML 100 ML IV SCH ×3 (05:42→21:54)
[2021-03-28] MEDS: PANTOPRAZOLE 40 MG/10 ML VIAL INJ IV SCH ×2 (09:36→21:54)
[2021-03-28] MEDS: ENOXAPARIN SOD 40 MG/0.4 ML SYRINGE SC SCH (09:37)
[2021-03-28] MEDS ORDERED: OMNIPAQUE ORAL SOLN 500ml 12mg/ml PO ONE (11:52)
[2021-03-28] MEDS ORDERED: IOHEXOL 300 MG/ML 100ML BOTTLE IJ ONE (11:52)
[2021-03-28] MEDS: D5W/SOD CHL 0.45%/KCL 20MEQ 1,000 ML IV SCH (12:38)
[2021-03-29] MEDS: HYDROmorphone HCL 2 MG/ML VL IV PRN ×8 (01:04→23:43)
[2021-03-29] MEDS: D5W/SOD CHL 0.45%/KCL 20MEQ 1,000 ML IV SCH ×3 (01:05→21:47)
[2021-03-29 05:00] VITALS: BP 122/84
[2021-03-29] MEDS: metroNIDAZOLE 500MG/100ML 100 ML IV SCH ×3 (05:16→22:18)
[2021-03-29 05:43] LABS: Basophils # (auto) 0 10 ^3/uL (0-0.2); Basophils % (auto) 0.3 % (0.0-2.0); Eosinophils # (auto) 0.1 10 ^3/uL (0-0.8); Lymphocytes # (auto) 1.3 10 ^3/uL (0.4-5.4); Monocytes % (auto) 11.6 % (0.0-12.0)
[2021-03-29 05:45] LABS: Hematocrit 37.7 % (41.0-53.0); Hemoglobin 12.7 g/dL (13.5-17.5); Lymphocytes % (auto) 11.3 % (10.0-50.0); Mean Corpuscular Hemoglobin 27.5 pg (28.0-32.0); Mean Corpuscular Hgb Conc. 33.8 g/dL (32.0-36.0); Mean Corpuscular Volume 81.5 fL (80.0-100.0); Monocytes # (auto) 1.3 10 ^3/uL (0-1.3); Neutrophils # (auto) 8.6 10 ^3/uL (1.6-8.6); Neutrophils % (auto) 75.8 % (37.0-80.0); Red Blood Cells 4.62 10^6/uL (4.5-5.90); Red Cell Distribution Width 15.4 % (11.8-14.3); White Blood Cell 11.4 10^3/uL (4.4-10.8)
[2021-03-29 06:19] LABS: Potassium 4.4 mmol/L (3.5-5.1)
[2021-03-29 06:27] LABS: Albumin 3.5 g/dL (3.4-5.0); BUN/Creatinine Ratio 29.7; Bilirubin, Total 1.6 mg/dL (0.2-1.0); Calcium 9.5 mg/dL (8.5-10.1); Total Protein 8.6 g/dL (6.4-8.2)
[2021-03-29 08:00] VITALS: BP 113/84
[2021-03-29 08:23] LABS: INR 1.31 (0.9-1.15)
[2021-03-29] MEDS: ENOXAPARIN SOD 40 MG/0.4 ML SYRINGE SC SCH (08:56)
[2021-03-29] MEDS: PANTOPRAZOLE 40 MG/10 ML VIAL INJ IV SCH ×2 (08:57→22:19)
[2021-03-29 09:00] VITALS: BP 113/84
[2021-03-29 13:00] VITALS: BP 112/87
[2021-03-29] MEDS ORDERED: LIDOCAINE 1% HCL (LOCAL ANESTH.) INJ 20ML MDV ONE (14:14)
[2021-03-29] MEDS ORDERED: BUPIVACAINE HCL 50 ML ONE (14:14)
[2021-03-29] MEDS ORDERED: FAMOTIDINE (10MG/ML) 2ML VL IV ONE (15:28)
[2021-03-29] MEDS ORDERED: SUCCINYLCHOLINE CHLORIDE 20 MG/ML 10ML VIAL IV ONE (15:28)
[2021-03-29] MEDS ORDERED: METOCLOPRAMIDE HCL 5MG/ml INJ 2ml VIAL IV ONE (15:30)
[2021-03-29] MEDS ORDERED: DexAMETHasone SOD PHOS 10MG/1ML VIAL INJ IV ONE (15:30)
[2021-03-29] MEDS ORDERED: HYDROmorphone HCL 2 MG/ML VL ONE (15:31)
[2021-03-29] MEDS ORDERED: LIDOCAINE 2% (LOCAL ANESTH.) PF 5ml SDV ONE (15:32)
[2021-03-29] MEDS ORDERED: ROCURONIUM 10MG/ML 10ML VIAL IV ONE (15:32)
[2021-03-29] MEDS ORDERED: fentaNYL CITRATE 100 MCG/2 ML VL ONE ×2 (15:32→17:31)
[2021-03-29] MEDS ORDERED: PROPOFOL 10 MG/ML 20 ML IV ONE (15:32)
[2021-03-29] MEDS ORDERED: GLYCOPYRROLATE 0.2 MG/ML 1ML VIAL ONE ×2 (15:32→17:43)
[2021-03-29] MEDS ORDERED: MIDAZOLAM HCL 2MG/2ML 2ml VIAL (1mg/ml) ONE (15:32)
[2021-03-29] MEDS ORDERED: ONDANSETRON HCL 4 MG/2 ML VIAL ONE (15:32)
[2021-03-29] MEDS ORDERED: ePHEDrine SULFATE 50 MG/ML AMP ONE (15:38)
[2021-03-29] MEDS ORDERED: NEOSTIGMINE 1 MG/ML INJ (10mg/10ML VIAL) ONE (17:43)
[2021-03-29] MEDS ORDERED: MEPERIDINE HCL (25 MG/ML) 1ML VIAL ONE (18:19)
[2021-03-29] MEDS ORDERED: HYDROmorphone HCL 2 MG/ML VL IV PRN (18:45)
[2021-03-29] MEDS ORDERED: ONDANSETRON HCL 4 MG/2 ML VIAL IV PRN (18:45)
[2021-03-29 20:00] VITALS: BP 103/78
[2021-03-30] MEDS: HYDROmorphone HCL 2 MG/ML VL IV PRN ×11 (01:36→23:01)
[2021-03-30] MEDS: D5W/SOD CHL 0.45%/KCL 20MEQ 1,000 ML IV SCH ×3 (04:12→17:58)
[2021-03-30 05:00] VITALS: BP 115/82
[2021-03-30] MEDS: metroNIDAZOLE 500MG/100ML 100 ML IV SCH ×3 (06:02→21:44)
[2021-03-30] MEDS: ONDANSETRON HCL 4 MG/2 ML VIAL IV PRN (06:15)
[2021-03-30] MEDS: ENOXAPARIN SOD 40 MG/0.4 ML SYRINGE SC SCH (08:37)
[2021-03-30] MEDS: PANTOPRAZOLE 40 MG/10 ML VIAL INJ IV SCH ×2 (08:37→21:45)
[2021-03-30 09:00] VITALS: BP 118/76
[2021-03-30 13:00] VITALS: BP 130/86
[2021-03-30 17:00] VITALS: BP 140/82
[2021-03-30] MEDS ORDERED: TPN PER PHARMACY 0 ML IV SCH (19:00)
[2021-03-30] MEDS: AMINO ACID INFUSION IN D10W 1,000 ML IV NR ×2 (20:10→20:12)
[2021-03-30 22:00] VITALS: BP 127/90
[2021-03-31] MEDS ORDERED: DEXTROSE (50%) 50ML SYRG IV SCH
[2021-03-31] MEDS: ACCU-CHEK COMFORT CURVE STRIP VI SCH ×5 (00:07→17:37)
[2021-03-31] MEDS: HYDROmorphone HCL 2 MG/ML VL IV PRN ×9 (01:42→21:30)
[2021-03-31] MEDS: D5W/SOD CHL 0.45%/KCL 20MEQ 1,000 ML IV SCH ×3 (02:14→16:28)
[2021-03-31] MEDS: ONDANSETRON HCL 4 MG/2 ML VIAL IV PRN ×2 (04:06→14:16)
[2021-03-31 05:00] VITALS: BP 124/80
[2021-03-31] MEDS: metroNIDAZOLE 500MG/100ML 100 ML IV SCH ×3 (05:26→21:10)
[2021-03-31] MEDS: InsuLIN REG 1unit/0.01ml Soln (100units/ml) SC SCH ×5 (06:00→17:37)
[2021-03-31 08:27] VITALS: BP 121/76
[2021-03-31 08:31] LABS: Basophils # (auto) 0 10 ^3/uL (0-0.2); Eosinophils # (auto) 0.1 10 ^3/uL (0-0.8); Eosinophils % (auto) 0.6 % (0.0-7.0); Hemoglobin 9.6 g/dL (13.5-17.5); Lymphocytes # (auto) 0.8 10 ^3/uL (0.4-5.4); Monocytes # (auto) 1.3 10 ^3/uL (0-1.3); White Blood Cell 11.3 10^3/uL (4.4-10.8)
[2021-03-31 08:33] LABS: Basophils % (auto) 0.2 % (0.0-2.0); Hematocrit 29.2 % (41.0-53.0); Lymphocytes % (auto) 7.1 % (10.0-50.0); Mean Corpuscular Hemoglobin 27.2 pg (28.0-32.0); Mean Corpuscular Volume 82.4 fL (80.0-100.0); Monocytes % (auto) 11.8 % (0.0-12.0); Neutrophils % (auto) 80.3 % (37.0-80.0); Red Blood Cells 3.55 10^6/uL (4.5-5.90)
[2021-03-31 08:45] LABS: Albumin 2.4 g/dL (3.4-5.0); Calcium 8.4 mg/dL (8.5-10.1); Magnesium 2.5 mg/dL (1.6-2.6)
[2021-03-31 08:49] LABS: BUN/Creatinine Ratio 21.3; Bilirubin, Total 0.9 mg/dL (0.2-1.0); Phosphorus 1.6 mg/dL (2.5-4.90); Total Protein 6.4 g/dL (6.4-8.2)
[2021-03-31] MEDS: ENOXAPARIN SOD 40 MG/0.4 ML SYRINGE SC SCH (09:27)
[2021-03-31] MEDS: PANTOPRAZOLE 40 MG/10 ML VIAL INJ IV SCH ×2 (09:27→21:11)
[2021-03-31 13:00] VITALS: BP 125/74
[2021-03-31] MEDS ORDERED: D5W/SOD CHL 0.45%/KCL 20MEQ 1,000 ML IV SCH ×2 (13:15→14:00)
[2021-03-31] MEDS ORDERED: POTASSIUM PHOSPHATE IV ONE (14:15)
[2021-03-31] MEDS ORDERED: D5W 5% IV ONE (14:15)
[2021-03-31] MEDS ORDERED: SODIUM PHOSPHATES 20 MEQ in SODIUM CHL 0.9% 100 ML IV ONE (15:15)
[2021-03-31 17:16] VITALS: BP 119/76
[2021-03-31] MEDS ORDERED: SODIUM CHLORIDE 0.9% 1,000 ML IV SCH (20:00)
[2021-03-31] MEDS: AMINO ACID INFUSION IN D10W 1,000 ML IV NR (21:10)
[2021-03-31] MEDS: SODIUM CHLOR 0.9% PF (SALINE LOCK) 10ML VIAL/SYR IV SCH (21:11)
[2021-03-31 22:00] VITALS: BP 126/75
[2021-04-01] MEDS: ONDANSETRON HCL 4 MG/2 ML VIAL IV PRN ×3 (00:05→09:15)
[2021-04-01] MEDS: HYDROmorphone HCL 2 MG/ML VL IV PRN ×9 (00:05→21:13)
[2021-04-01 05:00] VITALS: BP 109/68
[2021-04-01] MEDS: metroNIDAZOLE 500MG/100ML 100 ML IV SCH ×3 (05:37→22:28)
[2021-04-01] MEDS: InsuLIN REG 1unit/0.01ml Soln (100units/ml) SC SCH ×4 (06:00→17:40)
[2021-04-01 06:10] LABS: Basophils # (auto) 0 10 ^3/uL (0-0.2); Basophils % (auto) 0.2 % (0.0-2.0); Eosinophils # (auto) 0.1 10 ^3/uL (0-0.8); Eosinophils % (auto) 1.1 % (0.0-7.0); Hematocrit 26.4 % (41.0-53.0); Hemoglobin 8.9 g/dL (13.5-17.5); Lymphocytes # (auto) 0.7 10 ^3/uL (0.4-5.4); Mean Corpuscular Hgb Conc. 33.8 g/dL (32.0-36.0); Monocytes % (auto) 7.6 % (0.0-12.0); Neutrophils # (auto) 11.5 10 ^3/uL (1.6-8.6); Neutrophils % (auto) 86.1 % (37.0-80.0); Red Blood Cells 3.18 10^6/uL (4.5-5.90); Red Cell Distribution Width 15.8 % (11.8-14.3); White Blood Cell 13.4 10^3/uL (4.4-10.8)
[2021-04-01 06:22] LABS: Albumin 2.1 g/dL (3.4-5.0); Calcium 8.3 mg/dL (8.5-10.1); Magnesium 2.4 mg/dL (1.6-2.6); Potassium 3.8 mmol/L (3.5-5.1)
[2021-04-01] MEDS: ACCU-CHEK COMFORT CURVE STRIP VI SCH ×3 (06:24→17:41)
[2021-04-01 06:28] LABS: BUN/Creatinine Ratio 18.8; Bilirubin, Total 0.6 mg/dL (0.2-1.0); Phosphorus 3.1 mg/dL (2.5-4.90); Pre Albumin 12.2 mg/dL (20.0-40.0); Total Protein 6.1 g/dL (6.4-8.2)
[2021-04-01] MEDS: PANTOPRAZOLE 40 MG/10 ML VIAL INJ IV SCH ×2 (09:14→22:28)
[2021-04-01] MEDS: SODIUM CHLOR 0.9% PF (SALINE LOCK) 10ML VIAL/SYR IV SCH ×2 (09:14→22:28)
[2021-04-01] MEDS: D5W/SOD CHL 0.45%/KCL 20MEQ 1,000 ML IV SCH (09:14)
[2021-04-01] MEDS: ENOXAPARIN SOD 40 MG/0.4 ML SYRINGE SC SCH (09:15)
[2021-04-01 09:22] VITALS: BP 115/67
[2021-04-01 12:53] VITALS: BP 114/71
[2021-04-01 17:26] VITALS: BP 114/73
[2021-04-01] MEDS: AMINO ACID INFUSION IN D10W 1,000 ML IV NR (19:49)
[2021-04-01] MEDS ORDERED: TPN PER PHARMACY IV NR ×8 (20:00)
[2021-04-01] MEDS: SODIUM CHLORIDE 0.9% 1,000 ML IV SCH (20:22)
[2021-04-01 22:00] VITALS: BP 113/69
[2021-04-02] MEDS: HYDROmorphone HCL 2 MG/ML VL IV PRN ×8 (00:18→21:30)
[2021-04-02 05:00] VITALS: BP 110/75
[2021-04-02] MEDS: metroNIDAZOLE 500MG/100ML 100 ML IV SCH ×3 (05:57→22:15)
[2021-04-02] MEDS: InsuLIN REG 1unit/0.01ml Soln (100units/ml) SC SCH ×4 (06:00→18:00)
[2021-04-02] MEDS: ACCU-CHEK COMFORT CURVE STRIP VI SCH ×4 (06:13→18:36)
[2021-04-02 06:50] LABS: Basophils # (auto) 0 10 ^3/uL (0-0.2); Basophils % (auto) 0.7 % (0.0-2.0); Eosinophils # (auto) 0.3 10 ^3/uL (0-0.8); Eosinophils % (auto) 4.4 % (0.0-7.0); Hematocrit 28.5 % (41.0-53.0); Hemoglobin 9.4 g/dL (13.5-17.5); Lymphocytes % (auto) 14.4 % (10.0-50.0); Mean Corpuscular Hemoglobin 26.9 pg (28.0-32.0); Mean Corpuscular Volume 81.5 fL (80.0-100.0); Monocytes # (auto) 0.9 10 ^3/uL (0-1.3); Monocytes % (auto) 13.5 % (0.0-12.0); Neutrophils # (auto) 4.7 10 ^3/uL (1.6-8.6); Nucleated Red Blood Cells % 0.1 %; Red Cell Distribution Width 15.7 % (11.8-14.3)
[2021-04-02 06:51] LABS: Potassium 3.9 mmol/L (3.5-5.1)
[2021-04-02 06:59] LABS: Albumin 2.2 g/dL (3.4-5.0); BUN/Creatinine Ratio 28.1; Bilirubin, Total 0.5 mg/dL (0.2-1.0); Calcium 8.3 mg/dL (8.5-10.1); Magnesium 2.4 mg/dL (1.6-2.6); Phosphorus 2.7 mg/dL (2.5-4.90); Total Protein 6.4 g/dL (6.4-8.2)
[2021-04-02 08:36] VITALS: BP 120/79
[2021-04-02] MEDS: PANTOPRAZOLE 40 MG/10 ML VIAL INJ IV SCH ×2 (09:23→22:15)
[2021-04-02] MEDS: ENOXAPARIN SOD 40 MG/0.4 ML SYRINGE SC SCH (09:23)
[2021-04-02] MEDS: SODIUM CHLOR 0.9% PF (SALINE LOCK) 10ML VIAL/SYR IV SCH ×2 (09:23→22:16)
[2021-04-02 13:00] VITALS: BP 119/79
[2021-04-02 17:00] VITALS: BP 121/89
[2021-04-02] MEDS ORDERED: TPN PER PHARMACY IV NR ×9 (20:00)
[2021-04-02] MEDS: SODIUM CHLORIDE 0.9% 1,000 ML IV SCH (20:13)
[2021-04-02 21:44] VITALS: BP 109/78
[2021-04-03] VITALS (7 sets, daily range): BP systolic 108–124; BP diastolic 75–82
[2021-04-03] MEDS: ACCU-CHEK COMFORT CURVE STRIP VI SCH ×5 (00:19→23:48)
[2021-04-03] MEDS: HYDROmorphone HCL 2 MG/ML VL IV PRN ×8 (00:20→23:41)
[2021-04-03] MEDS: InsuLIN REG 1unit/0.01ml Soln (100units/ml) SC SCH ×5 (05:46→23:49)
[2021-04-03] MEDS: metroNIDAZOLE 500MG/100ML 100 ML IV SCH (05:46)
[2021-04-03 06:01] LABS: Basophils # (auto) 0.1 10 ^3/uL (0-0.2); Basophils % (auto) 1.2 % (0.0-2.0); Eosinophils # (auto) 0.4 10 ^3/uL (0-0.8); Eosinophils % (auto) 5.5 % (0.0-7.0); Hematocrit 29.2 % (41.0-53.0); Lymphocytes # (auto) 1.1 10 ^3/uL (0.4-5.4); Lymphocytes % (auto) 14.3 % (10.0-50.0); Mean Corpuscular Hgb Conc. 34.4 g/dL (32.0-36.0); Mean Corpuscular Volume 81.4 fL (80.0-100.0); Monocytes % (auto) 13.9 % (0.0-12.0); Neutrophils # (auto) 4.8 10 ^3/uL (1.6-8.6); Neutrophils % (auto) 65.1 % (37.0-80.0); Nucleated Red Blood Cells % 0.1 %; Red Blood Cells 3.59 10^6/uL (4.5-5.90); Red Cell Distribution Width 15.3 % (11.8-14.3); White Blood Cell 7.3 10^3/uL (4.4-10.8)
[2021-04-03 06:17] LABS: Potassium 4.3 mmol/L (3.5-5.1)
[2021-04-03 06:25] LABS: Albumin 2.4 g/dL (3.4-5.0); BUN/Creatinine Ratio 25.6; Bilirubin, Total 0.6 mg/dL (0.2-1.0); Calcium 8.7 mg/dL (8.5-10.1); Magnesium 2.3 mg/dL (1.6-2.6); Phosphorus 3.8 mg/dL (2.5-4.90); Total Protein 6.8 g/dL (6.4-8.2)
[2021-04-03] MEDS: PANTOPRAZOLE 40 MG/10 ML VIAL INJ IV SCH ×2 (09:58→22:30)
[2021-04-03] MEDS: ENOXAPARIN SOD 40 MG/0.4 ML SYRINGE SC SCH (09:58)
[2021-04-03] MEDS: SODIUM CHLOR 0.9% PF (SALINE LOCK) 10ML VIAL/SYR IV SCH ×2 (09:58→22:30)
[2021-04-03] MEDS ORDERED: TPN PER PHARMACY IV NR ×9 (20:00)
[2021-04-03] MEDS: SODIUM CHLORIDE 0.9% 1,000 ML IV SCH (22:29)
[2021-04-04] MEDS: HYDROmorphone HCL 2 MG/ML VL IV PRN ×7 (03:05→22:00)
[2021-04-04 05:00] VITALS: BP 108/81
[2021-04-04] MEDS: ACCU-CHEK COMFORT CURVE STRIP VI SCH ×4 (05:45→23:47)
[2021-04-04] MEDS: InsuLIN REG 1unit/0.01ml Soln (100units/ml) SC SCH ×4 (05:46→23:47)
[2021-04-04 06:08] LABS: Hemoglobin 10.9 g/dL (13.5-17.5); Mean Corpuscular Hemoglobin 27.7 pg (28.0-32.0); Mean Corpuscular Hgb Conc. 33.9 g/dL (32.0-36.0); Mean Corpuscular Volume 81.6 fL (80.0-100.0); Red Blood Cells 3.93 10^6/uL (4.5-5.90); Red Cell Distribution Width 15.8 % (11.8-14.3); White Blood Cell 8.4 10^3/uL (4.4-10.8)
[2021-04-04 06:27] LABS: Potassium 4.6 mmol/L (3.5-5.1)
[2021-04-04 06:44] LABS: Albumin 2.6 g/dL (3.4-5.0); BUN/Creatinine Ratio 27.3; Bilirubin, Total 0.4 mg/dL (0.2-1.0); Calcium 8.8 mg/dL (8.5-10.1); Magnesium 2.4 mg/dL (1.6-2.6); Total Protein 7.6 g/dL (6.4-8.2)
[2021-04-04 06:45] LABS: Basophils % (manual) 0 (0.0-2.0); Blast Cells 0; Metamyelocytes % 0; Reactive Lymphocytes 0
[2021-04-04 07:05] LABS: Band Neutrophils % (manual) 2; Eosinophils % (manual) 5 (0-7); Lymphocytes % (manual) 26 (10.0-50.0); Monocytes % (manual) 19 (0-12); Myelocytes % 3; Promyelocytes % 1
[2021-04-04 08:15] VITALS: BP 107/71
[2021-04-04 08:55] VITALS: BP 107/71
[2021-04-04] MEDS: PANTOPRAZOLE 40 MG/10 ML VIAL INJ IV SCH ×2 (09:45→21:54)
[2021-04-04] MEDS: SODIUM CHLOR 0.9% PF (SALINE LOCK) 10ML VIAL/SYR IV SCH ×2 (09:45→21:54)
[2021-04-04] MEDS: ENOXAPARIN SOD 40 MG/0.4 ML SYRINGE SC SCH (09:45)
[2021-04-04 13:07] VITALS: BP 108/80
[2021-04-04 17:02] VITALS: BP 106/79
[2021-04-04] MEDS ORDERED: TPN PER PHARMACY IV NR ×10 (20:00)
[2021-04-04] MEDS: SODIUM CHLORIDE 0.9% 1,000 ML IV SCH (20:07)
[2021-04-04 22:00] VITALS: BP 106/78
[2021-04-05] MEDS: HYDROmorphone HCL 2 MG/ML VL IV PRN ×7 (01:14→23:24)
[2021-04-05 05:00] VITALS: BP 109/79
[2021-04-05] MEDS: InsuLIN REG 1unit/0.01ml Soln (100units/ml) SC SCH ×4 (06:00→23:20)
[2021-04-05] MEDS: ACCU-CHEK COMFORT CURVE STRIP VI SCH ×4 (06:07→23:20)
[2021-04-05 06:42] LABS: Potassium 3.9 mmol/L (3.5-5.1)
[2021-04-05 06:53] LABS: Albumin 2.7 g/dL (3.4-5.0); BUN/Creatinine Ratio 32.7; Bilirubin, Total 0.4 mg/dL (0.2-1.0); Calcium 8.7 mg/dL (8.5-10.1); Magnesium 2.5 mg/dL (1.6-2.6); Phosphorus 3.5 mg/dL (2.5-4.90); Total Protein 7.6 g/dL (6.4-8.2)
[2021-04-05 08:00] VITALS: BP 108/75
[2021-04-05] MEDS: SODIUM CHLOR 0.9% PF (SALINE LOCK) 10ML VIAL/SYR IV SCH ×2 (10:08→23:20)
[2021-04-05] MEDS: ENOXAPARIN SOD 40 MG/0.4 ML SYRINGE SC SCH (10:08)
[2021-04-05] MEDS: PANTOPRAZOLE 40 MG/10 ML VIAL INJ IV SCH ×2 (10:08→23:20)
[2021-04-05 12:00] VITALS: BP 108/75
[2021-04-05 16:00] VITALS: BP 120/82
[2021-04-05] MEDS: SODIUM CHLORIDE 0.9% 1,000 ML IV SCH (20:00)
[2021-04-05] MEDS ORDERED: TPN PER PHARMACY IV NR ×10 (20:00)
[2021-04-05 22:00] VITALS: BP 114/71
[2021-04-06] MEDS: HYDROmorphone HCL 2 MG/ML VL IV PRN ×7 (02:20→23:42)
[2021-04-06 05:00] VITALS: BP 114/73
[2021-04-06] MEDS: InsuLIN REG 1unit/0.01ml Soln (100units/ml) SC SCH ×4 (05:31→23:40)
[2021-04-06] MEDS: ACCU-CHEK COMFORT CURVE STRIP VI SCH ×4 (05:31→23:40)
[2021-04-06] MEDS: SODIUM CHLORIDE 0.9% 1,000 ML IV SCH (05:43)
[2021-04-06 06:49] LABS: Potassium 3.9 mmol/L (3.5-5.1)
[2021-04-06 06:56] LABS: Albumin 2.7 g/dL (3.4-5.0); BUN/Creatinine Ratio 36.6; Bilirubin, Total 0.4 mg/dL (0.2-1.0); Calcium 8.7 mg/dL (8.5-10.1); Magnesium 2.4 mg/dL (1.6-2.6); Phosphorus 3.3 mg/dL (2.5-4.90); Total Protein 7.5 g/dL (6.4-8.2)
[2021-04-06 07:48] VITALS: BP 114/82
[2021-04-06] MEDS: SODIUM CHLOR 0.9% PF (SALINE LOCK) 10ML VIAL/SYR IV SCH ×2 (10:07→23:07)
[2021-04-06] MEDS: ENOXAPARIN SOD 40 MG/0.4 ML SYRINGE SC SCH (10:07)
[2021-04-06] MEDS: PANTOPRAZOLE 40 MG/10 ML VIAL INJ IV SCH ×2 (10:07→23:07)
[2021-04-06 12:00] VITALS: BP 113/82
[2021-04-06 16:00] VITALS: BP 127/77
[2021-04-06] MEDS ORDERED: TPN PER PHARMACY IV NR ×9 (20:00)
[2021-04-06 22:00] VITALS: BP 111/62
[2021-04-07] MEDS: HYDROmorphone HCL 2 MG/ML VL IV PRN ×7 (02:39→22:31)
[2021-04-07 05:00] VITALS: BP 104/84
[2021-04-07] MEDS: InsuLIN REG 1unit/0.01ml Soln (100units/ml) SC SCH ×3 (05:54→18:00)
[2021-04-07] MEDS: ACCU-CHEK COMFORT CURVE STRIP VI SCH ×3 (05:54→18:18)
[2021-04-07 05:55] LABS: Albumin 2.6 g/dL (3.4-5.0); Calcium 8.8 mg/dL (8.5-10.1); Magnesium 2.2 mg/dL (1.6-2.6); Potassium 3.9 mmol/L (3.5-5.1)
[2021-04-07 06:00] LABS: BUN/Creatinine Ratio 31.4; Bilirubin, Total 0.4 mg/dL (0.2-1.0); Phosphorus 3.8 mg/dL (2.5-4.90); Total Protein 7.2 g/dL (6.4-8.2)
[2021-04-07] MEDS: SODIUM CHLORIDE 0.9% 1,000 ML IV SCH (07:00)
[2021-04-07 09:00] VITALS: BP 108/75
[2021-04-07] MEDS: PANTOPRAZOLE 40 MG/10 ML VIAL INJ IV SCH ×3 (09:15→22:30)
[2021-04-07] MEDS: ENOXAPARIN SOD 40 MG/0.4 ML SYRINGE SC SCH (09:15)
[2021-04-07] MEDS: SODIUM CHLOR 0.9% PF (SALINE LOCK) 10ML VIAL/SYR IV SCH ×2 (09:15→22:24)
[2021-04-07 12:40] VITALS: BP 110/78
[2021-04-07 16:52] VITALS: BP 116/76
[2021-04-07] MEDS ORDERED: TPN PER PHARMACY IV NR ×9 (20:00)
[2021-04-07 22:00] VITALS: BP 115/74
[2021-04-08] MEDS: HYDROmorphone HCL 2 MG/ML VL IV PRN ×7 (02:08→20:57)
[2021-04-08 05:00] VITALS: BP 124/73
[2021-04-08] MEDS: ACCU-CHEK COMFORT CURVE STRIP VI SCH ×4 (05:52→17:36)
[2021-04-08] MEDS: InsuLIN REG 1unit/0.01ml Soln (100units/ml) SC SCH ×4 (05:53→17:36)
[2021-04-08 07:22] LABS: Potassium 3.8 mmol/L (3.5-5.1)
[2021-04-08 07:30] LABS: Albumin 2.7 g/dL (3.4-5.0); BUN/Creatinine Ratio 32.6; Bilirubin, Total 0.4 mg/dL (0.2-1.0); Calcium 8.6 mg/dL (8.5-10.1); Magnesium 2.2 mg/dL (1.6-2.6); Phosphorus 3.8 mg/dL (2.5-4.90); Pre Albumin 32.1 mg/dL (20.0-40.0); Total Protein 7.2 g/dL (6.4-8.2)
[2021-04-08 08:30] VITALS: BP 112/69
[2021-04-08] MEDS ORDERED: GASTROGRAFIN 120 ML SOL ONE (08:54)
[2021-04-08] MEDS: PANTOPRAZOLE 40 MG/10 ML VIAL INJ IV SCH ×2 (09:41→20:35)
[2021-04-08] MEDS: SODIUM CHLOR 0.9% PF (SALINE LOCK) 10ML VIAL/SYR IV SCH ×2 (09:42→20:35)
[2021-04-08] MEDS: ENOXAPARIN SOD 40 MG/0.4 ML SYRINGE SC SCH (09:42)
[2021-04-08 13:30] VITALS: BP 109/71
[2021-04-08 16:26] VITALS: BP 110/83
[2021-04-08] MEDS: SODIUM CHLORIDE 0.9% 1,000 ML IV SCH (17:10)
[2021-04-08] MEDS ORDERED: TPN PER PHARMACY IV NR ×18 (20:00)
[2021-04-08 22:00] VITALS: BP 114/76
[2021-04-09] MEDS: ACCU-CHEK COMFORT CURVE STRIP VI SCH ×4 (00:22→18:51)
[2021-04-09] MEDS: HYDROmorphone HCL 2 MG/ML VL IV PRN ×6 (00:27→21:26)
[2021-04-09 05:00] VITALS: BP 114/75
[2021-04-09] MEDS: InsuLIN REG 1unit/0.01ml Soln (100units/ml) SC SCH ×5 (06:00→20:49)
[2021-04-09 07:20] LABS: Albumin 2.7 g/dL (3.4-5.0); Calcium 8.6 mg/dL (8.5-10.1); Magnesium 2.2 mg/dL (1.6-2.6); Potassium 3.9 mmol/L (3.5-5.1)
[2021-04-09 07:24] LABS: BUN/Creatinine Ratio 27.3; Bilirubin, Total 0.4 mg/dL (0.2-1.0); Phosphorus 3.7 mg/dL (2.5-4.90); Total Protein 7.3 g/dL (6.4-8.2)
[2021-04-09 09:00] VITALS: BP 114/67
[2021-04-09] MEDS: SODIUM CHLOR 0.9% PF (SALINE LOCK) 10ML VIAL/SYR IV SCH (09:50)
[2021-04-09] MEDS: PANTOPRAZOLE 40 MG/10 ML VIAL INJ IV SCH ×2 (09:50→21:27)
[2021-04-09] MEDS: ENOXAPARIN SOD 40 MG/0.4 ML SYRINGE SC SCH (09:51)
[2021-04-09 13:00] VITALS: BP 111/70
[2021-04-09 16:46] VITALS: BP 118/75
[2021-04-09] MEDS ORDERED: TPN PER PHARMACY IV NR ×9 (20:00)
[2021-04-09] MEDS: SODIUM CHLORIDE 0.9% 1,000 ML IV SCH (20:00)
[2021-04-09 22:22] VITALS: BP 134/73
[2021-04-10] MEDS: ACCU-CHEK COMFORT CURVE STRIP VI SCH ×4 (00:01→17:38)
[2021-04-10] MEDS: HYDROmorphone HCL 2 MG/ML VL IV PRN ×6 (01:46→21:04)
[2021-04-10] MEDS: ONDANSETRON HCL 4 MG/2 ML VIAL IV PRN (05:09)
[2021-04-10] MEDS: SODIUM CHLOR 0.9% PF (SALINE LOCK) 10ML VIAL/SYR IV SCH ×2 (05:10→21:18)
[2021-04-10 05:23] VITALS: BP 106/73
[2021-04-10 05:51] LABS: Albumin 2.6 g/dL (3.4-5.0); Calcium 8.5 mg/dL (8.5-10.1); Magnesium 1.9 mg/dL (1.6-2.6); Potassium 3.8 mmol/L (3.5-5.1)
[2021-04-10 05:56] LABS: BUN/Creatinine Ratio 24.1; Bilirubin, Total 0.4 mg/dL (0.2-1.0); Phosphorus 3.8 mg/dL (2.5-4.90); Total Protein 6.8 g/dL (6.4-8.2)
[2021-04-10] MEDS: InsuLIN REG 1unit/0.01ml Soln (100units/ml) SC SCH ×3 (06:00→17:38)
[2021-04-10 08:00] VITALS: BP 118/80
[2021-04-10 09:00] VITALS: BP 118/80
[2021-04-10] MEDS: ENOXAPARIN SOD 40 MG/0.4 ML SYRINGE SC SCH (09:54)
[2021-04-10] MEDS: PANTOPRAZOLE 40 MG/10 ML VIAL INJ IV SCH ×2 (09:54→21:04)
[2021-04-10] MEDS: SODIUM CHLORIDE 0.9% 1,000 ML IV SCH (11:52)
[2021-04-10 13:00] VITALS: BP 110/70
[2021-04-10 17:00] VITALS: BP 121/75
[2021-04-10] MEDS ORDERED: TPN PER PHARMACY IV NR ×9 (20:00)
[2021-04-10 22:41] VITALS: BP 109/75
[2021-04-11] MEDS: ACCU-CHEK COMFORT CURVE STRIP VI SCH ×4 (00:27→18:07)
[2021-04-11] MEDS: HYDROmorphone HCL 2 MG/ML VL IV PRN ×7 (00:30→22:25)
[2021-04-11 05:19] VITALS: BP 117/79
[2021-04-11] MEDS: InsuLIN REG 1unit/0.01ml Soln (100units/ml) SC SCH ×4 (06:00→18:00)
[2021-04-11 06:14] LABS: Albumin 2.6 g/dL (3.4-5.0); BUN/Creatinine Ratio 18.9; Bilirubin, Total 0.4 mg/dL (0.2-1.0); Calcium 8.3 mg/dL (8.5-10.1); Magnesium 1.9 mg/dL (1.6-2.6); Phosphorus 3.3 mg/dL (2.5-4.90); Total Protein 6.8 g/dL (6.4-8.2)
[2021-04-11 08:00] VITALS: BP 115/72
[2021-04-11 09:00] VITALS: BP 115/72
[2021-04-11] MEDS: PANTOPRAZOLE 40 MG/10 ML VIAL INJ IV SCH ×2 (10:27→22:24)
[2021-04-11] MEDS: SODIUM CHLOR 0.9% PF (SALINE LOCK) 10ML VIAL/SYR IV SCH ×2 (10:27→22:24)
[2021-04-11] MEDS: ENOXAPARIN SOD 40 MG/0.4 ML SYRINGE SC SCH (10:27)
[2021-04-11 13:00] VITALS: BP 113/81
[2021-04-11 17:00] VITALS: BP 109/66
[2021-04-11] MEDS ORDERED: ACETAMINOPHEN 325 MG TAB PO PRN (18:15)
[2021-04-11 19:35] LABS: Basophils # (auto) 0 10 ^3/uL (0-0.2); Basophils % (auto) 0.4 % (0.0-2.0); Eosinophils # (auto) 0 10 ^3/uL (0-0.8); Hematocrit 34.3 % (41.0-53.0); Hemoglobin 11.6 g/dL (13.5-17.5); Lymphocytes # (auto) 0.4 10 ^3/uL (0.4-5.4); Lymphocytes % (auto) 4.2 % (10.0-50.0); Mean Corpuscular Hemoglobin 27.6 pg (28.0-32.0); Mean Corpuscular Hgb Conc. 33.9 g/dL (32.0-36.0); Mean Corpuscular Volume 81.4 fL (80.0-100.0); Monocytes # (auto) 0.4 10 ^3/uL (0-1.3); Monocytes % (auto) 3.7 % (0.0-12.0); Neutrophils # (auto) 9.7 10 ^3/uL (1.6-8.6); Neutrophils % (auto) 91.7 % (37.0-80.0); Red Blood Cells 4.21 10^6/uL (4.5-5.90); Red Cell Distribution Width 16.7 % (11.8-14.3); White Blood Cell 10.6 10^3/uL (4.4-10.8)
[2021-04-11] MEDS ORDERED: TPN PER PHARMACY IV NR ×9 (20:00)
[2021-04-11] MEDS: SODIUM CHLORIDE 0.9% 1,000 ML IV SCH (20:18)
[2021-04-11 22:53] VITALS: BP 101/51
[2021-04-12] MEDS: ACCU-CHEK COMFORT CURVE STRIP VI SCH ×5 (00:20→23:51)
[2021-04-12] MEDS: HYDROmorphone HCL 2 MG/ML VL IV PRN ×7 (01:35→23:50)
[2021-04-12 05:09] VITALS: BP 103/69
[2021-04-12] MEDS: InsuLIN REG 1unit/0.01ml Soln (100units/ml) SC SCH ×5 (05:32→23:50)
[2021-04-12] MEDS: PANTOPRAZOLE 40 MG/10 ML VIAL INJ IV SCH ×2 (08:35→22:02)
[2021-04-12] MEDS: ENOXAPARIN SOD 40 MG/0.4 ML SYRINGE SC SCH (08:36)
[2021-04-12] MEDS: SODIUM CHLOR 0.9% PF (SALINE LOCK) 10ML VIAL/SYR IV SCH ×2 (08:36→22:02)
[2021-04-12 08:59] VITALS: BP 107/70
[2021-04-12 12:42] VITALS: BP 102/65
[2021-04-12 17:00] VITALS: BP 109/63
[2021-04-12] MEDS: SODIUM CHLORIDE 0.9% 1,000 ML IV SCH (19:01)
[2021-04-12] MEDS ORDERED: ACETAMINOPHEN 325 MG TAB PO PRN ×2 (21:00)
[2021-04-12] MEDS ORDERED: VANCOMYCIN PER PHARMACY 0 MG IV SCH (21:30)
[2021-04-12 22:00] VITALS: BP 99/69
[2021-04-12] MEDS ORDERED: VANCOMYCIN 1GM/250ML 250 ML IV ONE (22:00)
[2021-04-12] MEDS: OXYCODONE W/ ACETAMINOPHEN 5/325MG TABLET PO PRN (22:02)
[2021-04-13] MEDS: OXYCODONE W/ ACETAMINOPHEN 5/325MG TABLET PO PRN ×5 (02:07→22:37)
[2021-04-13] MEDS: HYDROmorphone HCL 2 MG/ML VL IV PRN ×4 (02:40→10:00)
[2021-04-13 05:00] VITALS: BP 107/70
[2021-04-13] MEDS: InsuLIN REG 1unit/0.01ml Soln (100units/ml) SC SCH (05:56)
[2021-04-13] MEDS: ACCU-CHEK COMFORT CURVE STRIP VI SCH (05:56)
[2021-04-13 06:12] LABS: Hematocrit 29.7 % (41.0-53.0); Hemoglobin 10.2 g/dL (13.5-17.5); Mean Corpuscular Hemoglobin 28.1 pg (28.0-32.0); Mean Corpuscular Hgb Conc. 34.6 g/dL (32.0-36.0); Mean Corpuscular Volume 81.3 fL (80.0-100.0); Red Blood Cells 3.65 10^6/uL (4.5-5.90); Red Cell Distribution Width 16.8 % (11.8-14.3); White Blood Cell 3.5 10^3/uL (4.4-10.8)
[2021-04-13 06:22] LABS: Basophils % (manual) 0 (0.0-2.0); Blast Cells 0; Metamyelocytes % 0; Promyelocytes % 0; Reactive Lymphocytes 0
[2021-04-13 06:49] LABS: Band Neutrophils % (manual) 14; Eosinophils % (manual) 4 (0-7); Lymphocytes % (manual) 28 (10.0-50.0); Monocytes % (manual) 9 (0-12); Myelocytes % 1
[2021-04-13] MEDS: SODIUM CHLOR 0.9% PF (SALINE LOCK) 10ML VIAL/SYR IV SCH ×2 (08:30→22:36)
[2021-04-13] MEDS: ENOXAPARIN SOD 40 MG/0.4 ML SYRINGE SC SCH (08:30)
[2021-04-13] MEDS: PANTOPRAZOLE 40 MG/10 ML VIAL INJ IV SCH ×2 (08:30→22:36)
[2021-04-13 09:00] VITALS: BP 108/69
[2021-04-13] MEDS: VANCOMYCIN 1GM/250ML 250 ML IV SCH ×2 (12:00→20:08)
[2021-04-13 13:00] VITALS: BP 102/70
[2021-04-13 16:55] VITALS: BP 105/61
[2021-04-13] MEDS: SODIUM CHLORIDE 0.9% 1,000 ML IV SCH (20:08)
[2021-04-13 22:00] VITALS: BP 102/73
[2021-04-14] MEDS: OXYCODONE W/ ACETAMINOPHEN 5/325MG TABLET PO PRN ×5 (02:30→21:12)
[2021-04-14] MEDS: VANCOMYCIN 1GM/250ML 250 ML IV SCH ×3 (04:06→20:00)
[2021-04-14 05:00] VITALS: BP 106/75
[2021-04-14 06:42] LABS: Albumin 2.8 g/dL (3.4-5.0); Calcium 8.5 mg/dL (8.5-10.1); Potassium 3.6 mmol/L (3.5-5.1)
[2021-04-14 06:45] LABS: BUN/Creatinine Ratio 10.6; Phosphorus 3.2 mg/dL (2.5-4.90)
[2021-04-14 06:59] LABS: BUN/Creatinine Ratio 10.9; Calcium 8.6 mg/dL (8.5-10.1); Potassium 3.6 mmol/L (3.5-5.1)
[2021-04-14 09:00] VITALS: BP 113/73
[2021-04-14] MEDS: PANTOPRAZOLE 40 MG/10 ML VIAL INJ IV SCH ×2 (09:28→21:13)
[2021-04-14] MEDS: ENOXAPARIN SOD 40 MG/0.4 ML SYRINGE SC SCH (09:29)
[2021-04-14] MEDS: SODIUM CHLOR 0.9% PF (SALINE LOCK) 10ML VIAL/SYR IV SCH ×2 (09:29→21:13)
[2021-04-14 13:00] VITALS: BP 111/75
[2021-04-14 17:00] VITALS: BP 118/75
[2021-04-14] MEDS ORDERED: MAGNESIUM CITRATE SOLUTION 300 ML BTL PO ONE (18:15)
[2021-04-14 20:00] VITALS: BP 108/69
[2021-04-14 22:00] VITALS: BP 108/69
[2021-04-14] MEDS: LACTULOSE 20Gm/30ML SOLN PO SCH (23:52)
[2021-04-15] MEDS: VANCOMYCIN 1GM/250ML 250 ML IV SCH ×3 (03:47→19:54)
[2021-04-15 05:00] VITALS: BP 102/67
[2021-04-15] MEDS: OXYCODONE W/ ACETAMINOPHEN 5/325MG TABLET PO PRN ×5 (05:37→22:17)
[2021-04-15] MEDS: LACTULOSE 20Gm/30ML SOLN PO SCH ×3 (05:57→17:58)
[2021-04-15 09:00] VITALS: BP 102/68
[2021-04-15] MEDS: PANTOPRAZOLE 40 MG/10 ML VIAL INJ IV SCH ×2 (09:39→22:16)
[2021-04-15] MEDS: SODIUM CHLOR 0.9% PF (SALINE LOCK) 10ML VIAL/SYR IV SCH ×2 (09:39→22:16)
[2021-04-15 13:00] VITALS: BP 106/73
[2021-04-15 16:45] VITALS: BP 98/62
[2021-04-15] MEDS: ENOXAPARIN SOD 40 MG/0.4 ML SYRINGE SC SCH (18:04)
[2021-04-15 22:00] VITALS: BP 104/66
[2021-04-16] MEDS: OXYCODONE W/ ACETAMINOPHEN 5/325MG TABLET PO PRN ×6 (02:18→21:54)
[2021-04-16] MEDS: VANCOMYCIN 1GM/250ML 250 ML IV SCH ×3 (04:08→20:33)
[2021-04-16 05:00] VITALS: BP 112/71
[2021-04-16] MEDS: LACTULOSE 20Gm/30ML SOLN PO SCH ×4 (06:00→18:16)
[2021-04-16 09:00] VITALS: BP 104/69
[2021-04-16] MEDS: ENOXAPARIN SOD 40 MG/0.4 ML SYRINGE SC SCH (10:01)
[2021-04-16] MEDS: SODIUM CHLOR 0.9% PF (SALINE LOCK) 10ML VIAL/SYR IV SCH ×2 (11:59→20:33)
[2021-04-16] MEDS: PANTOPRAZOLE 40 MG/10 ML VIAL INJ IV SCH ×2 (11:59→20:33)
[2021-04-16 13:00] VITALS: BP 116/73
[2021-04-16] MEDS: PANTOPRAZOLE 40 MG TAB PO SCH (13:36)
[2021-04-16 16:30] VITALS: BP 106/68
[2021-04-16 22:00] VITALS: BP 121/76
[2021-04-17] MEDS: OXYCODONE W/ ACETAMINOPHEN 5/325MG TABLET PO PRN ×6 (02:29→22:36)
[2021-04-17] MEDS: VANCOMYCIN 1GM/250ML 250 ML IV SCH ×3 (04:30→22:35)
[2021-04-17 05:00] VITALS: BP 99/63
[2021-04-17] MEDS: LACTULOSE 20Gm/30ML SOLN PO SCH ×3 (06:00→12:00)
[2021-04-17 09:00] VITALS: BP 107/71
[2021-04-17] MEDS: SODIUM CHLOR 0.9% PF (SALINE LOCK) 10ML VIAL/SYR IV SCH ×2 (10:38→22:00)
[2021-04-17] MEDS: PANTOPRAZOLE 40 MG TAB PO SCH (10:39)
[2021-04-17] MEDS: ENOXAPARIN SOD 40 MG/0.4 ML SYRINGE SC SCH (10:39)
[2021-04-17 12:36] VITALS: BP 101/67
[2021-04-17] MEDS ORDERED: LACTULOSE 20Gm/30ML SOLN PO PRN (12:45)
[2021-04-17 17:00] VITALS: BP 111/76
[2021-04-17 22:00] VITALS: BP 121/72
[2021-04-18 05:00] VITALS: BP 104/75
[2021-04-18] MEDS: OXYCODONE W/ ACETAMINOPHEN 5/325MG TABLET PO PRN ×4 (06:48→20:31)
[2021-04-18 07:19] LABS: Basophils # (auto) 0.1 10 ^3/uL (0-0.2); Basophils % (auto) 2.2 % (0.0-2.0); Eosinophils # (auto) 0.3 10 ^3/uL (0-0.8); Eosinophils % (auto) 5.7 % (0.0-7.0); Hemoglobin 10.9 g/dL (13.5-17.5); Lymphocytes # (auto) 1.7 10 ^3/uL (0.4-5.4); Mean Corpuscular Hemoglobin 27.7 pg (28.0-32.0); Mean Corpuscular Hgb Conc. 34.1 g/dL (32.0-36.0); Mean Corpuscular Volume 81.3 fL (80.0-100.0); Monocytes # (auto) 0.5 10 ^3/uL (0-1.3); Neutrophils # (auto) 2.9 10 ^3/uL (1.6-8.6); Neutrophils % (auto) 53.1 % (37.0-80.0); Nucleated Red Blood Cells % 0.1 %; Red Blood Cells 3.94 10^6/uL (4.5-5.90); Red Cell Distribution Width 16.8 % (11.8-14.3); White Blood Cell 5.5 10^3/uL (4.4-10.8)
[2021-04-18 07:37] LABS: Potassium 4.2 mmol/L (3.5-5.1)
[2021-04-18 07:45] LABS: BUN/Creatinine Ratio 10.2; Calcium 9.1 mg/dL (8.5-10.1)
[2021-04-18 09:00] VITALS: BP 102/72
[2021-04-18] MEDS: ENOXAPARIN SOD 40 MG/0.4 ML SYRINGE SC SCH (10:14)
[2021-04-18] MEDS: PANTOPRAZOLE 40 MG TAB PO SCH (10:14)
[2021-04-18] MEDS: SODIUM CHLOR 0.9% PF (SALINE LOCK) 10ML VIAL/SYR IV SCH ×2 (10:14→21:45)
[2021-04-18] MEDS: VANCOMYCIN 1GM/250ML 250 ML IV SCH ×2 (11:48→23:03)
[2021-04-18 12:33] VITALS: BP 101/78
[2021-04-18 16:41] VITALS: BP 102/69
[2021-04-18 22:00] VITALS: BP 118/70
[2021-04-19] MEDS: OXYCODONE W/ ACETAMINOPHEN 5/325MG TABLET PO PRN ×2 (01:35→10:55)
[2021-04-19 05:00] VITALS: BP 112/71
[2021-04-19 08:00] VITALS: BP 108/69
[2021-04-19 09:00] VITALS: BP 108/69
[2021-04-19] MEDS: PANTOPRAZOLE 40 MG TAB PO SCH (10:52)
[2021-04-19] MEDS: SODIUM CHLOR 0.9% PF (SALINE LOCK) 10ML VIAL/SYR IV SCH ×2 (10:52→22:00)
[2021-04-19] MEDS: ENOXAPARIN SOD 40 MG/0.4 ML SYRINGE SC SCH (10:52)
[2021-04-19] MEDS: VANCOMYCIN 1GM/250ML 250 ML IV SCH ×2 (11:15→22:57)
[2021-04-19] MEDS ORDERED: ALPRAZolam 0.5 MG TAB PO PRN (12:15)
[2021-04-19 12:32] VITALS: BP 100/67
[2021-04-19] MEDS: HYDROcodone-ACET 10/325MG TAB PO PRN ×2 (15:57→22:58)
[2021-04-19 20:00] VITALS: BP 127/70
[2021-04-19 22:00] VITALS: BP 127/70
[2021-04-20] MEDS: HYDROcodone-ACET 10/325MG TAB PO PRN ×2 (04:55→11:59)
[2021-04-20 05:00] VITALS: BP 111/75
[2021-04-20 08:00] VITALS: BP 115/86
[2021-04-20] MEDS: SODIUM CHLOR 0.9% PF (SALINE LOCK) 10ML VIAL/SYR IV SCH (09:47)
[2021-04-20] MEDS: PANTOPRAZOLE 40 MG TAB PO SCH (09:47)
[2021-04-20] MEDS: ENOXAPARIN SOD 40 MG/0.4 ML SYRINGE SC SCH (09:47)
[2021-04-20] MEDS: VANCOMYCIN 1GM/250ML 250 ML IV SCH (11:10)
[2021-04-20 12:00] VITALS: BP 115/75
[2021-04-20] MEDS ORDERED: ERYT-124 PO (12:06)
[2021-04-20 14:09] VITALS: BP 123/78
== END 2021-04-20 15:00 | disposition home or self-care (01) | DRG 853 ==
LOC: EDBD 11:02 → ER 11:02 → EEVIPCON 11:02 → OVERFLOW 14:54 → CENTRAL 19:52 → EAST 03-14 13:38
PROVIDERS: ADMIT Internal Medicine; ATTEND Internal Medicine
PROC: 0DTK0ZZ Resection of Ascending Colon, Open Approach (ICD-10-PCS; 2021-03-15)
PROC: 0DTB0ZZ Resection of Ileum, Open Approach (ICD-10-PCS; 2021-03-15)
PROC: 0DQ80ZZ Repair Small Intestine, Open Approach (ICD-10-PCS; 2021-03-29)
PROC: 0DQV0ZZ Repair Mesentery, Open Approach (ICD-10-PCS; 2021-03-29)
PROC: 0DS80ZZ Reposition Small Intestine, Open Approach (ICD-10-PCS; principal; 2021-03-29 16:02)
DX: A41.1 Sepsis due to other specified staphylococcus (principal); U07.1 COVID-19; E43 Unspecified severe protein-calorie malnutrition; A04.72 Enterocolitis due to Clostridium difficile, not specified as recurrent; K56.7 Ileus, unspecified; K46.0 Unspecified abdominal hernia with obstruction, without gangrene; K50.012 Crohn's disease of small intestine with intestinal obstruction; K56.50 Intestinal adhesions [bands], unspecified as to partial versus complete obstruction; D72.829 Elevated white blood cell count, unspecified; K59.00 Constipation, unspecified; K52.9 Noninfective gastroenteritis and colitis, unspecified; D63.8 Anemia in other chronic diseases classified elsewhere; F22 Delusional disorders; F41.9 Anxiety disorder, unspecified; Z80.9 Family history of malignant neoplasm, unspecified; Z03.818 Encounter for observation for suspected exposure to other biological agents ruled out; Z82.49 Family history of ischemic heart disease and other diseases of the circulatory system; Z87.891 Personal history of nicotine dependence; Z93.2 Ileostomy status; Z79.899 Other long term (current) drug therapy; Z79.891 Long term (current) use of opiate analgesic; Z79.01 Long term (current) use of anticoagulants
CPT/HCPCS: 36415; 36569; 71045; 74018; 74022; 74176; 74177; 74250; 76705; 80048; 80053; 80069; 80074; 80202; 81001; 82040; 82565; 82962; 83735; 84100; 84478; 84484; 85007; 85025; 85027; 85610; 85730; 86703; 86850; 86900; 86901; 87040; 87077; 87086; 87186; 87426; 87493; 93005; 93970; 96361; 96365; 96368; 96375; 96376; 97110; 97116; 97530; C9113; G0378; J0330; J0696; J1100; J1815; J1885; J2001; J2185; J2250; J2405; J2704; J3490; J7131